=== PATIENT | female | born 1935 | race Caucasian/White ===

== ENCOUNTER 2016-05-08 19:12 | Inpatient (IN) | payer MEDICARE, OTHER ==
[~2016-05-08] VITALS: Ht 157.5 cm; Wt 96.2 kg
[~2016-05-08 19:12] MED LIST: ACET325T9 PO; ALBU2.5V5 NEB; AMLO5TAB2 PO; ARFO15VI NEB; ARIP5TAB6 PO; ASPI325T4 PO; BISA10SU2 RC; BISA5TAB4 PO; BRIM5DRO EACHEYE; BUDE0.5A NEB; BUSP5TAB PO; CHOL10003 PO; DEXT15DR5 EACHEYE; DIVA500T4 PO; FAMO20TA5 PO; ISOS30TA4 PO; LEVO50TA5 PO; MAGN400O4 PO; METH29OI TP; OMEG1CAP38 PO; POLY15DR27 OP; POLY17PO5 PO; PREG50CA PO; RANI150C PO; SERT100T PO; TROL86CR TP
--- NOTE | 2016-05-08 19:37 | ED.ADGEN ---
Adult General HPI HPI Patient is a 80-year-old female presents emergency department for medical clearance prior to admission to the geriatric psychiatric unit. Patient herself has no medical complaints. She does have a history of unspecified mood disorders. Review of Systems Review of Systems Constitutional: Denies fever or chills [] Eyes: Denies change in visual acuity, redness, or eye pain [] HENT: Denies nasal congestion or sore throat [] Respiratory: Denies cough or shortness of breath [] Cardiovascular: No additional information not addressed in HPI [] GI: Denies abdominal pain, nausea, vomiting, bloody stools or diarrhea [] : Denies dysuria or hematuria [] Musculoskeletal: Denies back pain or joint pain [] Integument: Denies rash or skin lesions [] Neurologic: Denies headache, focal weakness or sensory changes [] Endocrine: Denies polyuria or polydipsia [] Allergies Allergies Allergies Coded Allergies Type Severity Reaction Last Updated Verified Sulfa (Sulfonamide Antibiotics) Allergy Intermediate 01/20/16 Yes morphine Allergy Intermediate 01/20/16 Yes Physical Exam Physical Exam Constitutional: Well developed, well nourished, no acute distress, non-toxic appearance. [] HENT: Normocephalic, atraumatic, bilateral external ears normal, oropharynx moist, no oral exudates, nose normal. [] Eyes: PERRLA, EOMI, conjunctiva normal, no discharge. [] Neck: Normal range of motion, no tenderness, supple, no stridor. [] Cardiovascular:Heart rate regular rhythm, no murmur [] Lungs & Thorax: Bilateral breath sounds clear to auscultation [] Abdomen: Bowel sounds normal, soft, no tenderness, no masses, no pulsatile masses. [] Skin: Warm, dry, no erythema, no rash. [] Extremities: No tenderness, no cyanosis, no clubbing, ROM intact, no edema. [] Neurologic: Alert and oriented X 2, normal motor function, normal sensory function, no focal deficits noted. [] Psychologic: Affect normal, judgement normal, mood normal. [] Current Patient Data Lab Results Laboratory Tests Test 05/08/16 19:35 05/08/16 19:47 05/08/16 19:49 White Blood Count 4.8x10^3/uL (4.0-11.0) Red Blood Count 3.66x10^6/uL (3.50-5.40) Hemoglobin 10.7g/dL (12.0-15.5) L Hematocrit 32.8% (36.0-47.0) L Mean Corpuscular Volume 90fL (79-100) Mean Corpuscular Hemoglobin 29pg (25-35) Mean Corpuscular Hemoglobin Concent 33g/dL (31-37) Red Cell Distribution Width 14.6% (11.5-14.5) H Platelet Count 107x10^3/uL (140-400) L Neutrophils (%) (Auto) 64% (31-73) Lymphocytes (%) (Auto) 25% (24-48) Monocytes (%) (Auto) 10% (0-9) H Eosinophils (%) (Auto) 1% (0-3) Basophils (%) (Auto) 1% (0-3) Neutrophils # (Auto) 3.1x10^3uL (1.8-7.7) Lymphocytes # (Auto) 1.2x10^3/uL (1.0-4.8) Monocytes # (Auto) 0.5x10^3/uL (0.0-1.1) Eosinophils # (Auto) 0.0x10^3/uL (0.0-0.7) Basophils # (Auto) 0.0x10^3/uL (0.0-0.2) Magnesium Level 2.0mg/dL (1.8-2.4) Valproic Acid Level 28mcg/mL (50-100) L Valproic Acid Last Dose Date Unknown Valproic Acid Last Dose Time Unknown POC Hemoglobin 11.2gm/dL POC Hematocrit 33% POC Sodium 140mmol/L (135-145) POC Potassium 4.2mmol/L (3.5-5.0) POC Chloride 110mmol/L (98-110) POC Total CO2 24mmol/L (23-32) Anion Gap 11mmol/L (6-14) POC Blood Urea Nitrogen 31mg/dL (8-26) H POC Creatinine 1.5mg/dL (0.5-1.4) H Glucose Level 158mg/dL (60-99) H POC Ionized Calcium (Stanley) 1.32mmol/L (1.13-1.32) POC Troponin I 0.00ng/ml (<0.08) EKG EKG EKG interpreted by me, normal sinus rhythm, 57 beats for minute, leftward axis, no ST segment elevation. [] Radiology/Procedures Radiology/Procedures [] Course & Med Decision Making Course & Med Decision Making Pertinent Labs and Imaging studies reviewed. (See chart for details) Reassuring workup here. Patient admitted. [] Final Impression Final Impression Mood disorder with behavioral disturbance[] Problems: Dragon Disclaimer Dragon Disclaimer This electronic medical record was generated, in whole or in part, using a voice recognition dictation system. LETICIA REILYL MD May 08, 2016 19:37
[2016-05-08 19:58] LABS: BASO % 1 % (0-3); EOS % 1 % (0-3); HEMATOCRIT 32.8 % (36.0-47.0); HEMOGLOBIN 10.7 g/dL (12.0-15.5); LYMPH # 1.2 x10^3/uL (1.0-4.8); LYMPH % 25 % (24-48); MEAN CORPUSCULAR HEMOGLOBIN 29 pg (25-35); MEAN CORPUSCULAR HGB CONC 33 g/dL (31-37); MEAN CORPUSCULAR VOLUME 90 fL (79-100); MONO # 0.5 x10^3/uL (0.0-1.1); MONO % 10 % (0-9); NEUT # 3.1 x10^3uL (1.8-7.7); NEUT % 64 % (31-73); PLATELET COUNT 107 x10^3/uL (140-400); RED BLOOD COUNT 3.66 x10^6/uL (3.50-5.40); RED CELL DISTRIBUTION WIDTH 14.6 % (11.5-14.5); WHITE BLOOD COUNT 4.8 x10^3/uL (4.0-11.0)
[2016-05-08 20:03] LABS: HEMOGLOBIN ISTAT 11.2 gm/dL; POTASSIUM ISTAT 4.2 mmol/L (3.5-5.0)
--- NOTE | 2016-05-08 20:08 | EKG ---
[address] [address] Test Date: 2016-05-08 Test Time: 19:46:51 Pat Name: ABDON BOUDREAUX Department: Room: Gender: F Director Of Curriculum: : 1935 Requested By: LETICIA REILLY Order Number: [id number] Reading MD: Measurements Intervals [place] Rate: 57 P: 0 PA: 168 QRS: -24 QRSD: 88 T: -5 QT: 410 QTc: 402 Interpretive Statements SINUS RHYTHM LEFTWARD AXIS NO SPECIFIC ECG ABNORMALITIES RI6.01 Unconfirmed report Compared to ECG 05/19/2015 19:59:54 Left-axis deviation now present Sinus tachycardia no longer present T-wave abnormality no longer present Possible ischemia no longer present
[2016-05-08 20:10] LABS: VAL ACID 28 mcg/mL (50-100)
[2016-05-08 21:29] LABS: BILIRUBIN,URINE NEG (NEG); CLARITY,URINE CLEAR; COLOR,URINE YELLOW; GLUCOSE,URINE NEG (NEG); NITRITE,URINE NEG (NEG); UROBILINOGEN,URINE 0.2 mg/dL (0.2 mg/dL)
--- NOTE | 2016-05-08 21:30 | NUR ---
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 Molina. Dr. Kelly Dover consulted for medical management. Pt A/O x4 @this time, no hallucinations or delusions noted at this time. Pt ambulates w/assist x1-2, but is up per w/c at facility. Pt wears pull up briefs for occasional incontinence. LS clear to auscultation; abdomen soft, non-tender with positive bowel sounds; HRRR; BLE 2+ edema noted. Pt calm, cooperative, & compliant w/assessment; hx obtained from pt and daughter/DPOA. Pt denies SI/HI @this time.
[2016-05-08 21:31] LABS: BACTERIA,URINE 0 /HPF (0-FEW); RBC,URINE OCC /HPF (0-2); SQUAMOUS EPITHELIAL CELL,UR MANY /LPF
[2016-05-08] MEDS ORDERED: NITR0.4T SL (22:09)
[2016-05-08] MEDS ORDERED: MAGN400O4 PO (22:09)
[2016-05-08] MEDS ORDERED: CEFU250T59 PO (22:09)
[2016-05-08] MEDS ORDERED: IPRA3AMP NEB (22:09)
[2016-05-08] MEDS ORDERED: PROP1DRO OU (22:09)
[2016-05-08] MEDS ORDERED: MAGNESIUM HYDROXIDE 2,400 MG/30 ML ORAL.SUSP. PO PRN (22:30)
[2016-05-08] MEDS ORDERED: METHYL SALICYLATE/MENTHOL TOPICAL OINTMENT 29GM TUBE. TP PRN (22:30)
[2016-05-08] MEDS ORDERED: MAG HYDROX/AL HYDROX/SIMETH 30 ML ORAL.SUSP PO PRN (22:30)
[2016-05-08] MEDS ORDERED: ACETAMINOPHEN 325 MG TABLET PO PRN (22:30)
[2016-05-08] MEDS: busPIRone 5 MG TABLET. PO SCH (22:42)
[2016-05-08] MEDS: DIVALPROEX ER 500 MG TAB.ER.24H PO SCH (22:43)
[2016-05-08 23:14] VITALS: BP 175/80
--- NOTE | 2016-05-09 00:43 | NUR ---
Behavior Intervention Response and Plan: BIRP Note: Behavior: Assumed Care of patient, patient located in Patient Room at shift change. Patient exhibited the following behavior Calm, Cooperative, Compliant. Brief assessment on rounds of vital signs, medication needs, lab studies, and pain. Treatment plan problems 1 and 2. Intervention: Patient assessed and the following interventions initiated safety checks 15 Minute Checks Cognitive Assessment , Head to toe Assessment , Medications. Response: After interactions and interventions patient responded in the following manner, Calm , Compliant ,Cooperative. Continue to assess behaviors and condition will continue to monitor throughout the shift as needed. 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 Continue to assess patient for changes in above assessment. Monitor for medication needs, pain, and safety concerns. Hourly rounding performed to ensure safe environment.
[2016-05-09] MEDS ORDERED: BUDESONIDE 0.5 MG/2 ML NEBU NEB PRN (06:00)
[2016-05-09] MEDS ORDERED: ACETAMINOPHEN 325 MG TABLET PO PRN (06:00)
[2016-05-09] MEDS ORDERED: TROLAMINE SALICYLATE 10% TOPICAL CREAM 85GM JAR. TP PRN (06:00)
[2016-05-09] MEDS ORDERED: BISACODYL TAB 5 MG TABLET.DR. PO PRN (06:00)
[2016-05-09 06:07] VITALS: BP 153/58
[2016-05-09] MEDS: LEVOTHYROXINE 25 MCG TABLET. PO SCH (06:34)
[2016-05-09] MEDS: ASPIRIN 325 MG TABLET PO SCH (08:11)
[2016-05-09] MEDS: PREGABALIN 50 MG CAPSULE PO SCH ×3 (08:12→19:26)
[2016-05-09] MEDS: busPIRone 5 MG TABLET. PO SCH ×2 (08:12→19:20)
[2016-05-09] MEDS: ARIPIPRAZOLE 5 MG TABLET PO SCH (08:12)
[2016-05-09] MEDS: ACETAMINOPHEN 325 MG TABLET PO SCH ×2 (08:12→19:20)
[2016-05-09] MEDS: OMEGA-3 FATTY ACIDS/FISH OIL 1,000 MG CAPSULE. PO SCH (08:12)
[2016-05-09] MEDS: SERTRALINE 100 MG TABLET. PO SCH (08:12)
[2016-05-09] MEDS: FAMOTIDINE 20 MG TABLET PO SCH (08:13)
[2016-05-09] MEDS: ISOSORBIDE MONONITRATE ER 30 MG TAB.ER.24H PO SCH (08:13)
[2016-05-09] MEDS: AMLODIPINE BESYLATE 5 MG TABLET PO SCH ×2 (08:13→19:20)
[2016-05-09] MEDS: CHOLECALCIFEROL (VITAMIN D3) 1,000 UNIT TABLET PO SCH (08:13)
[2016-05-09] MEDS: BRIMONIDINE 0.2% OPHTH SOLUTION 5ML BOTTLE. OU SCH ×2 (08:18→21:00)
[2016-05-09] MEDS: POLYVINYL ALCOHOL 1.4% OPHTH SOLUTION 15ML BOTTLE. OU SCH ×2 (08:18→21:00)
[2016-05-09] MEDS: CEFPODOXIME PROXETIL 100 MG TABLET PO SCH ×2 (08:31→19:19)
[2016-05-09] MEDS ORDERED: PEG OU SCH (09:00)
[2016-05-09] MEDS ORDERED: PROPYLENE GLYCOL OU SCH (09:00)
[2016-05-09] MEDS ORDERED: CEFPODOXIME PROXETIL 200 MG TABLET PO SCH (09:00)
[2016-05-09] MEDS: IPRATRPIUM/ALBUTEROL 0.5/2.5MG 3 ML NEBU. NEB SCH ×4 (10:00→21:30)
--- NOTE | 2016-05-09 10:26 | RAD ---
CT of the head without contrast, 05/09/2016: History: Mental status change There is moderate cerebral atrophy. The ventricles are mildly enlarged on a compensatory basis. There is no shift of the midline structures. There is no evidence of acute intracranial hemorrhage or mass effect. There are mild bilateral deep white matter lucencies compatible with chronic ischemic change. Minimal basal ganglia calcification is present. IMPRESSION: 1. Cerebral atrophy. 2. Mild bilateral deep white matter lucencies compatible with chronic ischemic change. 3. No acute intracranial abnormality is detected. PQRS Compliance Statement: One or more of the following individualized dose reduction techniques were utilized for this examination: 1. Automated exposure control 2. Adjustment of the mA and/or kV according to patient size 3. Use of iterative reconstruction technique
--- NOTE | 2016-05-09 10:27 | NUR ---
Behavior Intervention Response and Plan: BIRP Note: Behavior: Assumed Care of patient, patient located in Patient Room at shift change. Patient exhibited the following behavior Calm, Compliant, Appropriate. Brief assessment on rounds of vital signs, medication needs, lab studies, and pain. Treatment plan problems 1 and 2. Intervention: Patient assessed and the following interventions initiated safety checks 15 Minute Checks Cognitive Assessment , Head to toe Assessment , Medications. Response: After interactions and interventions patient responded in the following manner, Calm , Appropriate ,Compliant. Continue to assess behaviors and condition will continue to monitor throughout the shift as needed. 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 Continue to assess patient for changes in above assessment. Monitor for medication needs, pain, and safety concerns. Hourly rounding performed to ensure safe environment.
--- NOTE | 2016-05-09 10:51 | ACF ---
Admission Criteria Forms [facility] Clinical Indications for Admission to Inpatient Care (Place 'X' for any and all applicable criteria): Hospital admission is needed for appropriate care of the patient because of ANY ONE of the following[A] (3)(4)(5): [ ]I. Inpatient behavioral care is needed as indicated by ALL of the following: [ ]a) Treatment is needed because of patient risk due to ANY ONE of the following: [ ]i) Imminent danger to self due to ANY ONE of the following ( 7)(8): [ ]1) Imminent risk for recurrence of a suicide attempt or act of serious self-harm as indicated by ALL of the following: [ ]A. Very recent suicide attempt or deliberate act of serious self-harm [ ]B. Absence of sufficient relief of the action' s precipitants [ ]2) Current plan for suicide or serious self-harm [ ]3) Persistent thoughts of suicide or serious self- harm that cannot be adequately monitored at a lower level of care because of ANY ONE of the following: [ ]A. Insufficient behavioral care provider availability [ ]B. Inadequate patient support system [ ]C. Patient characteristics such as high impulsivity or unreliability [ ]D. Ruminative flooding; uncontrollable and overwhelming profusion of negative thoughts [ ]E. Frantic hopelessness; fatalistic conviction that life will not improve along with oppressive sense of entrapment and doom [ ]F. Active substance use disorder is present [ ]G. Ready access to lethal means is present [ ]ii) Imminent danger to others due to ANY ONE of the following( 10)(11): [ ]1) Imminent risk for recurrence of an attempt to seriously harm another as indicated by ALL of the following: [ ]A. Very recent attempt to seriously harm another [ ]B. Absence of sufficient relief of the action' s precipitants [ ]2) Current plan for homicide or seriously harming another [ ]3) Command auditory hallucination for serious self harm to self or others [ ]4) Persistent thoughts of homicide or seriously harming another that cannot be adequately monitored at a lower level of care because of ANY ONE of the following: [ ]A. Insufficient behavioral care provider availability [ ]B. Inadequate patient support system [ ]C. Patient characteristics such as high impulsivity or unreliability [ ]D. Active substance use disorder is present [ ]E. Ready access to lethal means is present [ ]iii) Behavioral health disorder is present with ALL of the following: (12)(16)(17)(18): [ ]1) Severe psychiatric or behavioral symptoms are present , including ANY ONE of the following: [ ]A. Hallucinations that are very bothersome to patient or are associated with severe pressure to respond to voices(17)(18) [ ]B. Delusions that are very bothersome to patient or are associated with severe pressure to act on beliefs(17)(18) [ ]C. Disorganized speech that is almost impossible to follow(17)(18) [ ]D. Motor behavior that is almost constantly abnormal or bizarre or catatonic(17)(18) [ ]E. Severe negative symptoms (eg, severe decrease in facial expression or self-initiated behavior)(17)(18) [ ]F. Severe claudia (eg, daily periods of extensive mood elevation or irritability)(19)(20)(21)(22) [ ]G. Severe depression (eg, daily symptoms of deep hopelessness)[C] [ ]H. Severe anxiety[D] [ ]I. Severe comorbid substance use disorder with inability to control use, intense withdrawal symptoms, or extreme negative impact on primary psychiatric disorder(2)(7)(25) [ ]J. Severe impairment in cognition, memory, judgment, or impulse control(26)(27) [ ]K. Severe impairment in behavior, including physical or verbal aggression, disruptive behaviors, or internal or external anger manifestations (eg, rumination or outbursts)(28) [ ]L. Other psychiatric symptoms which are acute or represent worsening over baseline (eg, hyperactivity, agitation, obsessions, or compulsions)(29)(30)(31) [ ]2) Severe dysfunction in daily living is present as indicated by ANY ONE of the following: [ ]A. Extreme deterioration in social interactions ( eg, threatening behaviors with little or no provocation) [ ]B. Complete withdrawal from all social interactions [ ]C. Complete neglect of self-care with associated impairment in physical status [ ]D. Extreme disruption in vegetative function (eg , life-sustaining functions such as eating) [ ]E. Complete inability to maintain any appropriate aspect of personal responsibility in any adult roles (eg, occupational, parental) [ ]b) Treatment situation and needs are appropriate for level as indicated by ANY ONE of the following(13)(16): [ ]i) Patient unwilling to participate voluntarily and requires treatment (eg, legal commitment) in an involuntary unit [ ]ii) Voluntary treatment at lower level not feasible (e.g., very short-term crisis intervention or residential care unavailable or unacceptable for patient condition) [ ]iii) Need for physical restraint, seclusion, or other involuntary control (e.g., actively violent patient and adequate clinical rapport cannot be established to control violence) (25) [ ]iv) Nansyr-uek-kertm medical or nursing care to address symptoms and initiate intervention is required; specific need has been identified [ ]II. Delirium as described by ANY ONE of the following (26)(27)(28): [ ]a) Delirium due to alcohol or sedative [B] withdrawal (16)(29)(30)( 31) [ ]b) Delirium of uncertain etiology that has not responded to appropriate treatment in emergency department or urgent care setting (32)(33) [ ]c) Delirium that prevents performance of a life-sustaining function (eg, feeding or hydrating oneself) (9) [ ]III. Administration of a somatic treatment that requires [id number] medical or nursing care because of a potential adverse physical effect or medical comorbidity(7) [X]IV. Behavioral Health condition, symptom, or finding for which emergency and observation care have failed or are not considered appropriate The original [facility] content created by [employer] has been revised. The portions of the content which have been revised are identified through the use of italic text or in bold, and [facility] has neither reviewed nor approved the modified material. All other unmodified content is copyright [facility]. Please see references footnoted in the original [facility] edition 2016 Admission Criteria Met?: Yes LINK RENDON May 09, 2016 10:51
--- NOTE | 2016-05-09 12:47 | NUR ---
Psychosocial Assessment completed w/previous admission information. Pt. born in [place]. No history of family Dementia or MHI known, alcohol, substance abuse. Pt. graduated HS and was 3 times. Pt. has 2 dtrs. Pt. is a retired [employer]. Pt. has resided at [facility], although new placement may be necessary.
--- NOTE | 2016-05-09 12:49 | NUR ---
SW inquired w/[facility] if Pt. has had a Level II completed. Waiting for results.
[2016-05-09 13:52] LABS: IRON,SERUM 40 ug/dL (50-170)
--- NOTE | 2016-05-09 14:30 | NUR ---
ACTIVITY THERAPY ASSESSMENT Completed based on observations and interview on this day at this time in day room. Pt. was agreeable throughout assessment. Pt. could not believe she did what she supposedly did to get her here. Pt. reported she talked about killing Margarito but she stressed she would never do that. She repeated that statement over and over. Pt. reported she only likes three things: TV, Rummy and Bowling. Initial goal: Pt. will participate in at least one group before discharge.
[2016-05-09 14:54] LABS: THYROID STIM HORMONE (TSH) 0.293 uIU/mL (0.358-3.740)
[2016-05-09] MEDS ORDERED: CYANOCOBALAMIN (VITAMIN B-12) 1,000 MCG/ML VIAL IM ONE (15:10)
--- NOTE | 2016-05-09 15:22 | HP ---
ADMIT DATE: 05/09/2016 REASON FOR ADMISSION TO THE SENIOR BEHAVIORAL UNIT: This is an 80-year-old female, who has previous admission to the Senior Behavioral Unit in 01/2016. The intake states that she has been crying hysterically, going through her items, taking things apart and talking about dying and talking about her mother and father. The patient herself tells me that she knows her parents are and they a long time ago and what she said was that it was probably time for her to since she has lived so much longer than they have. The patient has no suicidal ideation or plan. PAST MEDICAL HISTORY: Recently being treated for urinary tract infection, peripheral vascular disease, COPD, hypothyroidism, chronic kidney disease stage 3, dependent edema, major depressive disorder, sleep apnea, but does not wear CPAP, fall risk, constipation, COPD. ALLERGIES: MORPHINE AND SULFA ANTIBIOTICS. MEDICATIONS: Reviewed. All of her medications are listed on 05/03/2016, so the patient has recently been hospitalized they were reviewed and are available on the MAR. SOCIAL HISTORY: The patient resides at [facility]. She has a daughter that she talks about. She grew up in [place], [place]. She was very close to her mother and father. She did smoke for 20 years from 1953 to 1972 and when her mother she quit. 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 REVIEW OF SYSTEMS: The patient has no particular complaints and nothing is bothering her and she is not sure why she is here. OBJECTIVE: VITAL SIGNS: Blood pressure 153/58, pulse 61, respirations 20, temperature 97.7, pulse ox this morning was 92% on room air and later was 98% on room air. GENERAL: Seated in a wheelchair, reading a magazine, mood is very amicable. She has an excellent sense of humour. HEENT: Her TMs were intact with good , actually the right side was partially occluded by wax. Her pupils are equal, round, react to light. Extraocular muscles are intact. She has evidence of cataract surgery. Her nose was patent. Throat was clear. Gag was excellent. NECK: Supple, without adenopathy. LUNGS: Clear to auscultation. CARDIOVASCULAR: Regular rhythm and rate. ABDOMEN: Soft, nontender. EXTREMITIES: With 1+ edema. NEUROLOGIC: She is intact. She can follow directions. Her cranial nerves are intact. There are no gross tremors. LABORATORY DATA: Hemoglobin is 10.7, platelet count was 107, BUN 31, creatinine 1.5. Iron is 40. B12 of 386. . ASSESSMENT: 1. Cognitive impairment with behavior disturbance. 2. Thoughts of dying. 3. Chronic kidney disease stage 3. 4. Normochromic normocytic anemia. 5. Mild thrombocytopenia. 6. Mild iron deficiency. 7. Sleep apnea, does not use CPAP. 8. Gastroesophageal reflux disease. PLAN: Treat her medical conditions, follow along with Dr. Molina, monitor blood work PT/OT. MADY HOWELL DO DR: OTIS/bryant JOB#: [id number] / [id number]
[2016-05-09 16:22] VITALS: BP 164/71
--- NOTE | 2016-05-09 16:52 | NUR ---
SW reviewed PT. insurance upon admit. CSNAP states No Part C, Intake states Medicaid, and Face sheet states PT's insurance is Medicare A/B primary and [place] secondary. No auth necessary.
[2016-05-09 17:10] LABS: T3 TOTAL 90 ng/dL (71-180)
[2016-05-09] MEDS: PRENATAL MULTIVITAMIN TABLET. PO SCH (17:14)
[2016-05-09] MEDS: DIVALPROEX ER 500 MG TAB.ER.24H PO SCH (19:20)
--- NOTE | 2016-05-09 21:18 | PDOC ---
Exam Chester Demential Exam: [place] Note: Please also refer to the separate dictated note~for this date of service dictated separately.~Patient seen individually. Discussed the patient with Nursing staff reviewed the chart.~Reviewed interim history and current functioning. Reviewed vital signs,~Labs/ Radiology~and current medications noted below. Continue current treatment with the changes noted in the dictated addendum note Assessment: Vital Signs: Vital Signs Date Time Temp Pulse Resp B/P Pulse Ox O2 Delivery O2 Flow Rate FiO2 05/09/16 19:20 62 164/71 05/09/16 16:22 97.3 18 95 05/09/16 10:00 Room Air Current Medications: Meds: Current Medications Aripiprazole (Abilify) 5 mg DAILY PO Last administered on 05/09/16 08:12; Start 05/09/16 at 09:00 Divalproex Sodium (Depakote Er) 500 mg HS PO Last administered on 05/09/16 19: 20; Start 05/08/16 at 22:00 Sertraline HCl (Zoloft) 200 mg DAILY PO Last administered on 05/09/16 08:12; Start 05/09/16 at 09:00 Buspirone HCl (Buspar) 5 mg BID PO Last administered on 05/09/16 19:20; Start 05/08/16 at 22:00 Acetaminophen (Tylenol) 650 mg PRN Q6HRS PRN PO PAIN / TEMP; Start 05/08/16 at 22:30; Stop 05/09/16 at 05:59; Status DC Multi-Ingredient Ointment (Analgesic [place]) 1 tang PRN QID PRN TP MUSCLE PAIN; Start 05/08/16 at 22:30 Al Hydroxide/Mg Hydroxide (Mylanta Plus Xs) 15 ml PRN AFTMEALHC PRN PO DYSPEPSIA; Start 05/08/16 at 22:30 Magnesium Hydroxide (Milk Of Magnesia) 2,400 mg PRN QHS PRN PO CONSTIPATION; Start 05/08/16 at 22:30; Stop 05/09/16 at 05:59; Status DC Acetaminophen (Tylenol) 650 mg BID PO Last administered on 05/09/16 19:20; Start 05/09/16 at 09:00 Acetaminophen (Tylenol) 650 mg PRN Q6HRS PRN PO MILD PAIN / TEMP; Start at 06:00 Amlodipine Besylate (Norvasc) 5 mg BID PO Last administered on 05/09/16 19:20 ; Start 05/09/16 at 09:00 Aspirin (Bronson Aspirin) 325 mg DAILY08 PO Last administered on 05/09/16 08:11 ; Start 05/09/16 at 08:00 Bisacodyl (Dulcolax Tab) 10 mg PRN DAILY PRN PO CONSTIPATION; Start 05/09/16 at 06:00 Budesonide (Pulmicort) 0.5 mg PRN BID PRN NEB wheezing; Start 05/09/16 at 06:00 Vitamin D (Vitamin D3) 5,000 unit DAILY PO Last administered on 05/09/16 08:13 ; Start 05/09/16 at 09:00 Famotidine (Pepcid) 20 mg DAILY PO Last administered on 05/09/16 08:13; Start 05/09/16 at 09:00 Albuterol/ Ipratropium (Duoneb) 3 ml RTQID NEB Last administered on 05/09/16 10:00; Start 05/09/16 at 08:00 Isosorbide Mononitrate (Imdur) 30 mg DAILY PO Last administered on 05/09/16 08 :13; Start 05/09/16 at 09:00 Levothyroxine Sodium (Synthroid) 25 mcg DAILY07 PO Last administered on 06:34; Start 05/09/16 at 07:00 Magnesium Hydroxide (Milk Of Magnesia) 2,400 mg PRN DAILY PRN PO CONSTIPATION; Start 05/09/16 at 06:00 Artificial Tears (Artificial Tears) 1 drop BID OU Last administered on 08:18; Start 05/09/16 at 09:00 Pregabalin (Lyrica) 50 mg TID PO Last administered on 05/09/16 19:26; Start at 09:00 Trolamine Salicylate (Myoplex) 1 tang PRN QID PRN TP MUSCLE PAIN; Start at 06:00 Brimonidine Tartrate (Alphagan) 1 drop BID OU Last administered on 05/09/16 08 :18; Start 05/09/16 at 09:00 Cefpodoxime Proxetil (Vantin) 200 mg BID PO ; Start 05/09/16 at 09:00; Stop at 09:00; Status DC Fish Oil (Fish Oil) 1,000 mg DAILY PO Last administered on 05/09/16 08:12; Start 05/09/16 at 09:00 Non-Formulary Medication 1 drop BID OU Glaucoma; Start 05/09/16 at 09:00; Status UNV Cefpodoxime Proxetil (Vantin) 200 mg BID PO Last administered on 05/09/16 19: 19; Start 05/09/16 at 09:00 Cyanocobalamin (Vitamin B-12) 1,000 mcg 1X ONCE IM Last administered on 17:14; Start 05/09/16 at 15:10; Stop 05/09/16 at 15:11; Status DC Prenat Multivit/ [employer]/Iron/Folic Ac (Multivitamin ) 1 tab DAILYBFRSUP PO Last administered on 05/09/16 17:14; Start 05/09/16 at 17:00 Active Scripts Active Reported Nitrostat (Nitroglycerin) 0.4 Mg Tab.subl 0.4 Mg SL PRN Q3MIN PRN Milk Of Magnesia (Magnesium Hydroxide) 400 Mg/5 Ml Oral.susp 30 Ml PO PRN DAILY PRN Systane 0.3-0.4% Eye Drops (Propylene Glycol/Peg 400/Pf) 1 Each Droperette 1 Drop OU BID Duoneb 0.5-3(2.5) Mg/3 Ml (Albuterol/Ipratropium) 3 Ml Ampul.neb 3 Ml NEB QID Cefuroxime (Cefuroxime Axetil) 250 Mg Tablet 250 Mg PO BID 10 Days Buspirone Hcl 5 Mg Tablet 5 Mg PO BID Artificial Tears (Polyvinyl Alcohol) 15 Ml Drops 1 Drp OP BID Famotidine 20 Mg Tablet 1 Tab PO BID Analgesic Creme (Trolamine Salicylate) 86 Gm Cream..g. 1 Tang TP PRN QID PRN Bisacodyl 10 Mg Supp.rect 10 Mg RC PRN DAILY PRN FOR CONSTIPATION NOT RELIEVED BY MILK OF MAG/MIRALAX/BISACODYL ORAL Bisacodyl 5 Mg Tablet.dr 10 Mg PO PRN DAILY PRN FOR CONSTIPATION NOT RELIEVED BY MILK OF MAGNESIA OR MIRALAX Tylenol (Acetaminophen) 325 Mg Tablet 650 Mg PO PRN Q6HRS PRN Lyrica (Pregabalin) 50 Mg Capsule 50 Mg PO TID Abilify (Aripiprazole) 5 Mg Tablet 5 Mg PO DAILY Vitamin D3 (Cholecalciferol (Vitamin D3)) 1,000 Unit Tablet 5,000 Unit PO DAILY Tylenol (Acetaminophen) 325 Mg Tablet 650 Mg PO BID Zoloft (Sertraline Hcl) 100 Mg Tablet 200 Mg PO DAILY Levothyroxine Sodium 50 Mcg Tablet 25 Mcg PO DAILY06 Isosorbide Mononitrate Er (Isosorbide Mononitrate) 30 Mg Tab.er.24h 30 Mg PO DAILY [place] 3 Fish Oil Softgel ([place]-3 Fatty Acids/Fish Oil) 1 Each Capsule.dr 1,000 Mg PO DAILY Depakote Er (Divalproex Sodium) 500 Mg Tab.er.24h 500 Mg PO HS Budesonide 0.5 Mg/2 Ml Ampul.neb 1 Vial NEB PRN BID PRN Alphagan P (Brimonidine Tartrate) 5 Ml Drops 1 Drop EACHEYE BID Aspirin 325 Mg Tablet 325 Mg PO DAILY08 Amlodipine Besylate 5 Mg Tablet 5 Mg PO BID Diagnosis: Problems: (1) Depression (2) Bipolar affective, mixed, sev w/ psych (3) Anxiety disorder (4) Impulse control disorder (5) Major depressive disorder, recurrent episode FAUSTO GREGORY MD May 09, 2016 21:18
--- NOTE | 2016-05-09 21:52 | NUR ---
Behavior Intervention Response and Plan: BIRP Note: Behavior: Assumed Care of patient, patient located in Day Room at shift change. Patient exhibited the following behavior Interactive, Calm, Able to Focus on Task. Brief assessment on rounds of vital signs, medication needs, lab studies, and pain. Treatment plan problems aggrssion. Intervention: Patient assessed and the following interventions initiated safety checks 15 Minute Checks Cognitive Assessment , Head to toe Assessment , Medications. Response: After interactions and interventions patient responded in the following manner, Social , Restless ,Defensive. Continue to assess behaviors and condition will continue to monitor throughout the shift as needed. 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 Continue to assess patient for changes in above assessment. Monitor for medication needs, pain, and safety concerns. Hourly rounding performed to ensure safe environment.
[2016-05-10 01:11] LABS: HEMOGLOBIN A1C 5.6 % (4.8-5.6)
[2016-05-10 03:12] LABS: RPR REFLEX Non Reactive (Non Reactive)
[2016-05-10] MEDS: IPRATRPIUM/ALBUTEROL 0.5/2.5MG 3 ML NEBU. NEB SCH ×4 (05:25→21:34)
--- NOTE | 2016-05-10 06:12 | NUR ---
pt slept well all shift.
[2016-05-10 06:25] VITALS: BP 162/69
[2016-05-10] MEDS: ACETAMINOPHEN 325 MG TABLET PO SCH ×2 (09:19→20:19)
[2016-05-10] MEDS: ARIPIPRAZOLE 5 MG TABLET PO SCH (09:19)
[2016-05-10] MEDS: CEFPODOXIME PROXETIL 100 MG TABLET PO SCH ×2 (09:19→20:13)
[2016-05-10] MEDS: AMLODIPINE BESYLATE 5 MG TABLET PO SCH ×2 (09:19→20:20)
[2016-05-10] MEDS: CHOLECALCIFEROL (VITAMIN D3) 1,000 UNIT TABLET PO SCH (09:19)
[2016-05-10] MEDS: ISOSORBIDE MONONITRATE ER 30 MG TAB.ER.24H PO SCH (09:20)
[2016-05-10] MEDS: FAMOTIDINE 20 MG TABLET PO SCH (09:20)
[2016-05-10] MEDS: SERTRALINE 100 MG TABLET. PO SCH (09:20)
[2016-05-10] MEDS: busPIRone 5 MG TABLET. PO SCH ×2 (09:20→20:19)
[2016-05-10] MEDS: ASPIRIN 325 MG TABLET PO SCH (09:20)
[2016-05-10] MEDS: OMEGA-3 FATTY ACIDS/FISH OIL 1,000 MG CAPSULE. PO SCH (09:20)
[2016-05-10] MEDS: BRIMONIDINE 0.2% OPHTH SOLUTION 5ML BOTTLE. OU SCH ×2 (09:22→20:20)
[2016-05-10] MEDS: PREGABALIN 50 MG CAPSULE PO SCH ×3 (09:22→20:21)
[2016-05-10] MEDS: POLYVINYL ALCOHOL 1.4% OPHTH SOLUTION 15ML BOTTLE. OU SCH ×2 (09:22→20:20)
[2016-05-10] MEDS: LEVOTHYROXINE 25 MCG TABLET. PO SCH (09:22)
[2016-05-10 10:06] LABS: ALBUMIN 3.1 g/dL (3.4-5.0); ALBUMIN/GLOBULIN RATIO 0.8 (1.0-1.7); CALCIUM 9.5 mg/dL (8.5-10.1); CREATININE 1.5 mg/dL (0.6-1.0); GFR 33.3; POTASSIUM 4.5 mmol/L (3.5-5.1); TOTAL BILIRUBIN 0.2 mg/dL (0.2-1.0); TOTAL PROTEIN 6.8 g/dL (6.4-8.2)
--- NOTE | 2016-05-10 11:35 | NUR ---
Behavior Intervention Response and Plan: BIRP Note: Behavior: Assumed Care of patient, patient located in Day Room at shift change. Patient exhibited the following behavior Calm, Cooperative, Interactive. Brief assessment on rounds of vital signs, medication needs, lab studies, and pain. Treatment plan problems 1 and 2. Intervention: Patient assessed and the following interventions initiated safety checks 15 Minute Checks Cognitive Assessment , Medications , Oral Hydration. Response: After interactions and interventions patient responded in the following manner, Interactive , Appropriate ,Cooperative. Continue to assess behaviors and condition will continue to monitor throughout the shift as needed. 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 Continue to assess patient for changes in above assessment. Monitor for medication needs, pain, and safety concerns. Hourly rounding performed to ensure safe environment.
--- NOTE | 2016-05-10 12:04 | NUR ---
SW faxed over Facesheet to [facility] requesting Level II assessment.
[2016-05-10 12:10] LABS: VITAMIN D25(OH)TOTAL 27.4 ng/mL (30.0-100.0)
--- NOTE | 2016-05-10 12:12 | HP ---
ADMIT DATE: 05/09/2016 Psychiatric Admission History/Evaluation This is a late entry. IDENTIFYING DATA: The patient is an 80-year-old female who is referred back to [facility] by her primary care physician on account of "crying hysterically," going through with things, taking things apart, talking about dying, looking for mother and father, stating "I'm going to ." The patient has had marked increase in her mood lability. Behaviors have been unmanageable at the nursing facility. She has failed outpatient psychiatric interventions resulting in this referral. CHIEF COMPLAINT: "Nice to seen you again. Yes, I get depressed. Things get difficult." HISTORY OF PRESENT ILLNESS: The patient has a history of mood disorder, unspecified versus bipolar 1 disorder. She also has anxiety disorder and cognitive disorder, cyclothymic disorder. She has been here with us in the past, for sometime has been residing at the [facility]. Over the past week or 10 days, she has had increase of her mood vacillation. She was also diagnosed with a UTI and has been on antibiotics since 05/03. She has had sleep and appetite changes, marked increase in anxiety and depressive symptoms. No active suicidal or homicidal ideation. She does have short term memory deficits. PAST PSYCHIATRIC HISTORY: As above. MEDICAL HISTORY: Peripheral vascular disease, obesity, COPD, hypothyroidism, chronic kidney disease, glaucoma, GERD, hypertension, atrial fibrillation, sleep apnea, diabetes mellitus, UTI. She has Accu-Cheks a.c. and at bedtime, regular diet, takes her medications whole. CODE STATUS: DNR. CURRENT PSYCHOTROPICS: Zoloft 200 mg a day, Abilify 5 mg a day, BuSpar 5 mg twice a day, Depakote ER 500 mg at bedtime. Valproic acid level is 28. FAMILY HISTORY: Noncontributory. SOCIAL HISTORY: No alcohol, drug abuse, physical, sexual or elder abuse history is noted. She is not known to be a perpetrator. MENTAL STATUS EXAMINATION: The patient was seen individually. She readily recognized me. Speech is coherent. Mood is depressed, anxious, labile at times. At times, she is somewhat hyperverbal. Intellect average. Insight fair. Judgment intact to standard questioning. No active suicidal or homicidal ideation. No clear hallucinations noted. LABORATORY DATA: Reviewed. PHYSICAL EXAMINATION: VITAL SIGNS: Mentioned in my initial note. IMPRESSION: Bipolar 1 disorder, mixed versus depressed with a history of psychotic features; anxiety disorder, unspecified; cyclothymic disorder, mood disorder, unspecified; cognitive disorder, unspecified. Rest diagnoses as above. PLAN: Continue current psychotropics mentioned about. Check a valproic acid level, adjust Depakote to reach a therapeutic level. May need to change Zoloft to Wellbutrin or augment Zoloft with Wellbutrin depending on her mood symptoms post-adjustment of Depakote. I will see the patient daily individually from a psychiatric standpoint. Medical followp with Dr. Dover/Dr. Elias. MAN Marcela GREGORY MD DR: LUBNA/bryant JOB#: [id number] / [id number]
[2016-05-10 16:14] VITALS: BP 115/56
[2016-05-10] MEDS: PRENATAL MULTIVITAMIN TABLET. PO SCH (17:03)
--- NOTE | 2016-05-10 20:20 | NUR ---
Behavior Intervention Response and Plan: BIRP Note: Behavior: Assumed Care of patient, patient located in Patient Room at shift change. Patient exhibited the following behavior Calm, Compliant, Cooperative. Brief assessment on rounds of vital signs, medication needs, lab studies, and pain. Treatment plan problems . Intervention: Patient assessed and the following interventions initiated safety checks 15 Minute Checks Cognitive Assessment , Head to toe Assessment , Medications. Response: After interactions and interventions patient responded in the following manner, Calm , Compliant ,Cooperative. Continue to assess behaviors and condition will continue to monitor throughout the shift as needed. 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 Continue to assess patient for changes in above assessment. Monitor for medication needs, pain, and safety concerns. Hourly rounding performed to ensure safe environment.
[2016-05-10] MEDS: DIVALPROEX ER 250 MG TAB.ER.24H. PO SCH (20:21)
--- NOTE | 2016-05-10 21:02 | PDOC ---
Exam Chester Demential Exam: Chester Note: Please also refer to the separate dictated note~for this date of service dictated separately.~Patient seen individually. Discussed the patient with Nursing staff reviewed the chart.~Reviewed interim history and current functioning. Reviewed vital signs,~Labs/ Radiology~and current medications noted below. Continue current treatment with the changes noted in the dictated addendum note Assessment: Vital Signs: Vital Signs Date Time Temp Pulse Resp B/P Pulse Ox O2 Delivery O2 Flow Rate FiO2 05/10/16 20:20 76 176/80 05/10/16 16:54 98 Room Air 05/10/16 16:14 97.6 18 I&O Intake and Output 05/10/16 07:00 Intake Total 1320 ml Balance 1320 ml Intake Oral 1320 ml Labs: Laboratory Tests Test 05/10/16 07:40 05/10/16 09:24 05/10/16 12:38 05/10/16 16:55 Glucose (Fingerstick) 111mg/dL (70-99) H 148mg/dL (70-99) H 146mg/dL (70-99) H Sodium Level 145mmol/L (136-145) Potassium Level 4.5mmol/L (3.5-5.1) Chloride Level 109mmol/L (98-107) H Carbon Dioxide Level 27mmol/L (21-32) Anion Gap 9 (6-14) Blood Urea Nitrogen 34mg/dL (7-20) H Creatinine 1.5mg/dL (0.6-1.0) H Estimated GFR (Cockcroft-Gault) 33.3 BUN/Creatinine Ratio 23 (6-20) H Glucose Level 141mg/dL (70-99) H Calcium Level 9.5mg/dL (8.5-10.1) Total Bilirubin 0.2mg/dL (0.2-1.0) Aspartate Amino Transferase (AST) 10U/L (15-37) L Alanine Aminotransferase (ALT) 16U/L (14-59) Alkaline Phosphatase 105U/L (46-116) Total Protein 6.8g/dL (6.4-8.2) Albumin 3.1g/dL (3.4-5.0) L Albumin/Globulin Ratio 0.8 (1.0-1.7) L Test 05/10/16 19:55 Glucose (Fingerstick) 181mg/dL (70-99) H Current Medications: Meds: Current Medications Aripiprazole (Abilify) 5 mg DAILY PO Last administered on 05/10/16 09:19; Start 05/09/16 at 09:00 Divalproex Sodium (Depakote Er) 500 mg HS PO Last administered on 05/09/16 19: 20; Start 05/08/16 at 22:00; Stop 05/10/16 at 10:35; Status DC Sertraline HCl (Zoloft) 200 mg DAILY PO Last administered on 05/10/16 09:20; Start 05/09/16 at 09:00 Buspirone HCl (Buspar) 5 mg BID PO Last administered on 05/10/16 20:19; Start 05/08/16 at 22:00 Acetaminophen (Tylenol) 650 mg PRN Q6HRS PRN PO PAIN / TEMP; Start 05/08/16 at 22:30; Stop 05/09/16 at 05:59; Status DC Multi-Ingredient Ointment (Analgesic [place]) 1 tang PRN QID PRN TP MUSCLE PAIN; Start 05/08/16 at 22:30 Al Hydroxide/Mg Hydroxide (Mylanta Plus Xs) 15 ml PRN AFTMEALHC PRN PO DYSPEPSIA; Start 05/08/16 at 22:30 Magnesium Hydroxide (Milk Of Magnesia) 2,400 mg PRN QHS PRN PO CONSTIPATION; Start 05/08/16 at 22:30; Stop 05/09/16 at 05:59; Status DC Acetaminophen (Tylenol) 650 mg BID PO Last administered on 05/10/16 20:19; Start 05/09/16 at 09:00 Acetaminophen (Tylenol) 650 mg PRN Q6HRS PRN PO MILD PAIN / TEMP; Start at 06:00 Amlodipine Besylate (Norvasc) 5 mg BID PO Last administered on 05/10/16 20:20 ; Start 05/09/16 at 09:00 Aspirin (Bronson Aspirin) 325 mg DAILY08 PO Last administered on 05/10/16 09:20 ; Start 05/09/16 at 08:00 Bisacodyl (Dulcolax Tab) 10 mg PRN DAILY PRN PO CONSTIPATION; Start 05/09/16 at 06:00 Budesonide (Pulmicort) 0.5 mg PRN BID PRN NEB wheezing; Start 05/09/16 at 06:00 Vitamin D (Vitamin D3) 5,000 unit DAILY PO Last administered on 05/10/16 09:19 ; Start 05/09/16 at 09:00 Famotidine (Pepcid) 20 mg DAILY PO Last administered on 05/10/16 09:20; Start 05/09/16 at 09:00 Albuterol/ Ipratropium (Duoneb) 3 ml RTQID NEB Last administered on 05/10/16 16:53; Start 05/09/16 at 08:00 Isosorbide Mononitrate (Imdur) 30 mg DAILY PO Last administered on 05/10/16 09 :20; Start 05/09/16 at 09:00 Levothyroxine Sodium (Synthroid) 25 mcg DAILY07 PO Last administered on 09:22; Start 05/09/16 at 07:00 Magnesium Hydroxide (Milk Of Magnesia) 2,400 mg PRN DAILY PRN PO CONSTIPATION; Start 05/09/16 at 06:00 Artificial Tears (Artificial Tears) 1 drop BID OU Last administered on 20:20; Start 05/09/16 at 09:00 Pregabalin (Lyrica) 50 mg TID PO Last administered on 05/10/16 20:21; Start at 09:00 Trolamine Salicylate (Myoplex) 1 tang PRN QID PRN TP MUSCLE PAIN; Start at 06:00 Brimonidine Tartrate (Alphagan) 1 drop BID OU Last administered on 05/10/16 20 :20; Start 05/09/16 at 09:00 Cefpodoxime Proxetil (Vantin) 200 mg BID PO ; Start 05/09/16 at 09:00; Stop at 09:00; Status DC Fish Oil (Fish Oil) 1,000 mg DAILY PO Last administered on 05/10/16 09:20; Start 05/09/16 at 09:00 Non-Formulary Medication 1 drop BID OU Glaucoma; Start 05/09/16 at 09:00; Status UNV Cefpodoxime Proxetil (Vantin) 200 mg BID PO Last administered on 05/10/16 20: 13; Start 05/09/16 at 09:00 Cyanocobalamin (Vitamin B-12) 1,000 mcg 1X ONCE IM Last administered on 17:14; Start 05/09/16 at 15:10; Stop 05/09/16 at 15:11; Status DC Prenat Multivit/ [place]/Iron/Folic Ac (Multivitamin ) 1 tab DAILYBFRSUP PO Last administered on 05/10/16 17:03; Start 05/09/16 at 17:00 Divalproex Sodium (Depakote Er) 750 mg QHS PO Last administered on 05/10/16 20 :21; Start 05/10/16 at 21:00 Active Scripts Active Reported Nitrostat (Nitroglycerin) 0.4 Mg Tab.subl 0.4 Mg SL PRN Q3MIN PRN Milk Of Magnesia (Magnesium Hydroxide) 400 Mg/5 Ml Oral.susp 30 Ml PO PRN DAILY PRN Systane 0.3-0.4% Eye Drops (Propylene Glycol/Peg 400/Pf) 1 Each Droperette 1 Drop OU BID Duoneb 0.5-3(2.5) Mg/3 Ml (Albuterol/Ipratropium) 3 Ml Ampul.neb 3 Ml NEB QID Cefuroxime (Cefuroxime Axetil) 250 Mg Tablet 250 Mg PO BID 10 Days Buspirone Hcl 5 Mg Tablet 5 Mg PO BID Artificial Tears (Polyvinyl Alcohol) 15 Ml Drops 1 Drp OP BID Famotidine 20 Mg Tablet 1 Tab PO BID Analgesic Creme (Trolamine Salicylate) 86 Gm Cream..g. 1 Tang TP PRN QID PRN Bisacodyl 10 Mg Supp.rect 10 Mg RC PRN DAILY PRN FOR CONSTIPATION NOT RELIEVED BY MILK OF MAG/MIRALAX/BISACODYL ORAL Bisacodyl 5 Mg Tablet.dr 10 Mg PO PRN DAILY PRN FOR CONSTIPATION NOT RELIEVED BY MILK OF MAGNESIA OR MIRALAX Tylenol (Acetaminophen) 325 Mg Tablet 650 Mg PO PRN Q6HRS PRN Lyrica (Pregabalin) 50 Mg Capsule 50 Mg PO TID Abilify (Aripiprazole) 5 Mg Tablet 5 Mg PO DAILY Vitamin D3 (Cholecalciferol (Vitamin D3)) 1,000 Unit Tablet 5,000 Unit PO DAILY Tylenol (Acetaminophen) 325 Mg Tablet 650 Mg PO BID Zoloft (Sertraline Hcl) 100 Mg Tablet 200 Mg PO DAILY Levothyroxine Sodium 50 Mcg Tablet 25 Mcg PO DAILY06 Isosorbide Mononitrate Er (Isosorbide Mononitrate) 30 Mg Tab.er.24h 30 Mg PO DAILY [place] 3 Fish Oil Softgel ([place] Fatty Acids/Fish Oil) 1 Each Capsule.dr 1,000 Mg PO DAILY Depakote Er (Divalproex Sodium) 500 Mg Tab.er.24h 500 Mg PO HS Budesonide 0.5 Mg/2 Ml Ampul.neb 1 Vial NEB PRN BID PRN Alphagan P (Brimonidine Tartrate) 5 Ml Drops 1 Drop EACHEYE BID Aspirin 325 Mg Tablet 325 Mg PO DAILY08 Amlodipine Besylate 5 Mg Tablet 5 Mg PO BID Diagnosis: Problems: (1) Depression (2) Bipolar affective, mixed, sev w/ psych (3) Anxiety disorder (4) Impulse control disorder (5) Major depressive disorder, recurrent episode FAUSTO GREGORY MD May 10, 2016 21:02
[2016-05-11] MEDS: IPRATRPIUM/ALBUTEROL 0.5/2.5MG 3 ML NEBU. NEB SCH ×4 (05:39→19:56)
[2016-05-11] MEDS: LEVOTHYROXINE 25 MCG TABLET. PO SCH (05:42)
[2016-05-11 06:34] VITALS: BP 173/67
[2016-05-11] MEDS: SERTRALINE 100 MG TABLET. PO SCH (08:50)
[2016-05-11] MEDS: CHOLECALCIFEROL (VITAMIN D3) 1,000 UNIT TABLET PO SCH (08:50)
[2016-05-11] MEDS: OMEGA-3 FATTY ACIDS/FISH OIL 1,000 MG CAPSULE. PO SCH (08:50)
[2016-05-11] MEDS: FAMOTIDINE 20 MG TABLET PO SCH (08:50)
[2016-05-11] MEDS: busPIRone 5 MG TABLET. PO SCH ×2 (08:50→19:38)
[2016-05-11] MEDS: ARIPIPRAZOLE 5 MG TABLET PO SCH (08:50)
[2016-05-11] MEDS: AMLODIPINE BESYLATE 5 MG TABLET PO SCH ×2 (08:50→19:39)
[2016-05-11] MEDS: ISOSORBIDE MONONITRATE ER 30 MG TAB.ER.24H PO SCH (08:51)
[2016-05-11] MEDS: ASPIRIN 325 MG TABLET PO SCH (08:51)
[2016-05-11] MEDS: ACETAMINOPHEN 325 MG TABLET PO SCH ×2 (08:51→19:39)
[2016-05-11] MEDS: CEFPODOXIME PROXETIL 100 MG TABLET PO SCH ×2 (08:51→19:40)
[2016-05-11] MEDS: POLYVINYL ALCOHOL 1.4% OPHTH SOLUTION 15ML BOTTLE. OU SCH ×2 (08:52→19:42)
[2016-05-11] MEDS: BRIMONIDINE 0.2% OPHTH SOLUTION 5ML BOTTLE. OU SCH ×2 (08:52→19:42)
[2016-05-11] MEDS: PREGABALIN 50 MG CAPSULE PO SCH ×3 (08:52→19:42)
--- NOTE | 2016-05-11 10:14 | NUR ---
Behavior Intervention Response and Plan: BIRP Note: Behavior: Assumed Care of patient, patient located in Patient Room at shift change. Patient exhibited the following behavior Calm, Cooperative, Compliant. Brief assessment on rounds of vital signs, medication needs, lab studies, and pain. Treatment plan problems . Intervention: Patient assessed and the following interventions initiated safety checks 15 Minute Checks Personal Alarm in place , Cognitive Assessment , Head to toe Assessment. Response: After interactions and interventions patient responded in the following manner, Calm , Cooperative ,Compliant. Continue to assess behaviors and condition will continue to monitor throughout the shift as needed. 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 Continue to assess patient for changes in above assessment. Monitor for medication needs, pain, and safety concerns. Hourly rounding performed to ensure safe environment.
[2016-05-11] MEDS: PRENATAL MULTIVITAMIN TABLET. PO SCH (14:45)
[2016-05-11 16:07] VITALS: BP 157/70
[2016-05-11] MEDS: DIVALPROEX ER 250 MG TAB.ER.24H. PO SCH (19:40)
--- NOTE | 2016-05-11 21:01 | PDOC ---
Exam [place] Demential Exam: [place] Note: Please also refer to the separate dictated note~for this date of service dictated separately.~Patient seen individually. Discussed the patient with Nursing staff reviewed the chart.~Reviewed interim history and current functioning. Reviewed vital signs,~Labs/ Radiology~and current medications noted below. Continue current treatment with the changes noted in the dictated addendum note Assessment: Vital Signs: Vital Signs Date Time Temp Pulse Resp B/P Pulse Ox O2 Delivery O2 Flow Rate FiO2 05/11/16 19:58 99 Room Air 05/11/16 19:39 57 157/70 05/11/16 16:07 97.5 20 I&O Intake and Output 05/11/16 07:00 Intake Total 1300 ml Balance 1300 ml Intake Oral 1300 ml # Voids 2 Labs: Laboratory Tests Test 05/11/16 07:36 05/11/16 11:03 Glucose (Fingerstick) 105mg/dL (70-99) H 121mg/dL (70-99) H Current Medications: Meds: Current Medications Aripiprazole (Abilify) 5 mg DAILY PO Last administered on 05/11/16 08:50; Start 05/09/16 at 09:00 Divalproex Sodium (Depakote Er) 500 mg HS PO Last administered on 05/09/16 19: 20; Start 05/08/16 at 22:00; Stop 05/10/16 at 10:35; Status DC Sertraline HCl (Zoloft) 200 mg DAILY PO Last administered on 05/11/16 08:50; Start 05/09/16 at 09:00 Buspirone HCl (Buspar) 5 mg BID PO Last administered on 05/11/16 19:38; Start 05/08/16 at 22:00 Acetaminophen (Tylenol) 650 mg PRN Q6HRS PRN PO PAIN / TEMP; Start 05/08/16 at 22:30; Stop 05/09/16 at 05:59; Status DC Multi-Ingredient Ointment (Analgesic [place]) 1 tang PRN QID PRN TP MUSCLE PAIN; Start 05/08/16 at 22:30 Al Hydroxide/Mg Hydroxide (Mylanta Plus Xs) 15 ml PRN AFTMEALHC PRN PO DYSPEPSIA; Start 05/08/16 at 22:30 Magnesium Hydroxide (Milk Of Magnesia) 2,400 mg PRN QHS PRN PO CONSTIPATION; Start 05/08/16 at 22:30; Stop 05/09/16 at 05:59; Status DC Acetaminophen (Tylenol) 650 mg BID PO Last administered on 05/11/16 19:39; Start 05/09/16 at 09:00 Acetaminophen (Tylenol) 650 mg PRN Q6HRS PRN PO MILD PAIN / TEMP; Start at 06:00 Amlodipine Besylate (Norvasc) 5 mg BID PO Last administered on 05/11/16 19:39 ; Start 05/09/16 at 09:00 Aspirin (Bronson Aspirin) 325 mg DAILY08 PO Last administered on 05/11/16 08:51 ; Start 05/09/16 at 08:00 Bisacodyl (Dulcolax Tab) 10 mg PRN DAILY PRN PO CONSTIPATION; Start 05/09/16 at 06:00 Budesonide (Pulmicort) 0.5 mg PRN BID PRN NEB wheezing; Start 05/09/16 at 06:00 Vitamin D (Vitamin D3) 5,000 unit DAILY PO Last administered on 05/11/16 08:50 ; Start 05/09/16 at 09:00 Famotidine (Pepcid) 20 mg DAILY PO Last administered on 05/11/16 08:50; Start 05/09/16 at 09:00 Albuterol/ Ipratropium (Duoneb) 3 ml RTQID NEB Last administered on 05/11/16 19:56; Start 05/09/16 at 08:00 Isosorbide Mononitrate (Imdur) 30 mg DAILY PO Last administered on 05/11/16 08 :51; Start 05/09/16 at 09:00 Levothyroxine Sodium (Synthroid) 25 mcg DAILY07 PO Last administered on 05:42; Start 05/09/16 at 07:00 Magnesium Hydroxide (Milk Of Magnesia) 2,400 mg PRN DAILY PRN PO CONSTIPATION; Start 05/09/16 at 06:00 Artificial Tears (Artificial Tears) 1 drop BID OU Last administered on 19:42; Start 05/09/16 at 09:00 Pregabalin (Lyrica) 50 mg TID PO Last administered on 05/11/16 19:42; Start at 09:00 Trolamine Salicylate (Myoplex) 1 tang PRN QID PRN TP MUSCLE PAIN; Start at 06:00 Brimonidine Tartrate (Alphagan) 1 drop BID OU Last administered on 05/11/16 19 :42; Start 05/09/16 at 09:00 Cefpodoxime Proxetil (Vantin) 200 mg BID PO ; Start 05/09/16 at 09:00; Stop at 09:00; Status DC Fish Oil (Fish Oil) 1,000 mg DAILY PO Last administered on 05/11/16 08:50; Start 05/09/16 at 09:00 Non-Formulary Medication 1 drop BID OU Glaucoma; Start 05/09/16 at 09:00; Status UNV Cefpodoxime Proxetil (Vantin) 200 mg BID PO Last administered on 05/11/16 19: 40; Start 05/09/16 at 09:00 Cyanocobalamin (Vitamin B-12) 1,000 mcg 1X ONCE IM Last administered on 17:14; Start 05/09/16 at 15:10; Stop 05/09/16 at 15:11; Status DC Prenat Multivit/ Sylva/Iron/Folic Ac (Multivitamin ) 1 tab DAILYBFRSUP PO Last administered on 05/11/16 14:45; Start 05/09/16 at 17:00 Divalproex Sodium (Depakote Er) 750 mg QHS PO Last administered on 05/11/16 19 :40; Start 05/10/16 at 21:00 Active Scripts Active Reported Nitrostat (Nitroglycerin) 0.4 Mg Tab.subl 0.4 Mg SL PRN Q3MIN PRN Milk Of Magnesia (Magnesium Hydroxide) 400 Mg/5 Ml Oral.susp 30 Ml PO PRN DAILY PRN Systane 0.3-0.4% Eye Drops (Propylene Glycol/Peg 400/Pf) 1 Each Droperette 1 Drop OU BID Duoneb 0.5-3(2.5) Mg/3 Ml (Albuterol/Ipratropium) 3 Ml Ampul.neb 3 Ml NEB QID Cefuroxime (Cefuroxime Axetil) 250 Mg Tablet 250 Mg PO BID 10 Days Buspirone Hcl 5 Mg Tablet 5 Mg PO BID Artificial Tears (Polyvinyl Alcohol) 15 Ml Drops 1 Drp OP BID Famotidine 20 Mg Tablet 1 Tab PO BID Analgesic Creme (Trolamine Salicylate) 86 Gm Cream..g. 1 Tang TP PRN QID PRN Bisacodyl 10 Mg Supp.rect 10 Mg RC PRN DAILY PRN FOR CONSTIPATION NOT RELIEVED BY MILK OF MAG/MIRALAX/BISACODYL ORAL Bisacodyl 5 Mg Tablet.dr 10 Mg PO PRN DAILY PRN FOR CONSTIPATION NOT RELIEVED BY MILK OF MAGNESIA OR MIRALAX Tylenol (Acetaminophen) 325 Mg Tablet 650 Mg PO PRN Q6HRS PRN Lyrica (Pregabalin) 50 Mg Capsule 50 Mg PO TID Abilify (Aripiprazole) 5 Mg Tablet 5 Mg PO DAILY Vitamin D3 (Cholecalciferol (Vitamin D3)) 1,000 Unit Tablet 5,000 Unit PO DAILY Tylenol (Acetaminophen) 325 Mg Tablet 650 Mg PO BID Zoloft (Sertraline Hcl) 100 Mg Tablet 200 Mg PO DAILY Levothyroxine Sodium 50 Mcg Tablet 25 Mcg PO DAILY06 Isosorbide Mononitrate Er (Isosorbide Mononitrate) 30 Mg Tab.er.24h 30 Mg PO DAILY [place] 3 Fish Oil Softgel ([place]-3 Fatty Acids/Fish Oil) 1 Each Capsule.dr 1,000 Mg PO DAILY Depakote Er (Divalproex Sodium) 500 Mg Tab.er.24h 500 Mg PO HS Budesonide 0.5 Mg/2 Ml Ampul.neb 1 Vial NEB PRN BID PRN Alphagan P (Brimonidine Tartrate) 5 Ml Drops 1 Drop EACHEYE BID Aspirin 325 Mg Tablet 325 Mg PO DAILY08 Amlodipine Besylate 5 Mg Tablet 5 Mg PO BID Diagnosis: Problems: (1) Depression (2) Bipolar affective, mixed, sev w/ psych (3) Anxiety disorder (4) Impulse control disorder (5) Major depressive disorder, recurrent episode FAUSTO GREGORY MD May 11, 2016 21:01
--- NOTE | 2016-05-11 22:07 | NUR ---
Behavior Intervention Response and Plan: BIRP Note: Behavior: Assumed Care of patient, patient located in Day Room at shift change. Patient exhibited the following behavior Interactive, Calm, Cooperative. Brief assessment on rounds of vital signs, medication needs, lab studies, and pain. Treatment plan problems 1 and 2. Intervention: Patient assessed and the following interventions initiated safety checks 15 Minute Checks Cognitive Assessment , Head to toe Assessment , Medications. Response: After interactions and interventions patient responded in the following manner, Calm , Compliant ,Cooperative. Continue to assess behaviors and condition will continue to monitor throughout the shift as needed. Plan: Continue to monitor Master Treatment Plan for patient's progress toward short term goals of Improved Mood, Decreased Anxiety, [facility] goals to return to previous living setting vs placement. Continue to assess patient for changes in above assessment. Monitor for medication needs, pain, and safety concerns. Hourly rounding performed to ensure safe environment.
--- NOTE | 2016-05-12 02:01 | PN ---
DATE: 05/10/2016 This late entry 05/10/2016 covers elements not covered in my initial note. SUBJECTIVE: The patient was staffed at a treatment team meeting with entire team reviewed the patient's history, diagnosis, progress, discharge plans. Appetite 90%, sleeping about 6-7 hours, remains in a wheelchair, cooperative. REVIEW OF SYSTEMS: Ambulation impaired, met with her in her room. No CV, , pulmonary, eye, ENT system symptoms on review. MENTAL STATUS EXAM: Oriented reasonably. Speech is coherent, abstraction fair, computation impaired, language function intact. Mood and affect improved, less labile, less anxious as compared to when she was admitted. LABORATORY DATA: Reviewed. IMPRESSION: Probable bipolar 1 disorder, unspecified; anxiety disorder, unspecified; cyclothymic disorder; cognitive disorder, unspecified. PLAN: Valproic acid level is 28 and increase Depakote ER from 500 mg at bedtime to 750 at bedtime. Follow labs level in 3 days. Continue BuSpar 5 b.i.d., Abilify 5 mg a day, Zoloft 200 mg a day. MAN Marcela GREGORY MD DR: LUBNA/bryant JOB#: [id number] / [id number]
[2016-05-12] MEDS: IPRATRPIUM/ALBUTEROL 0.5/2.5MG 3 ML NEBU. NEB SCH ×4 (05:22→21:24)
[2016-05-12] MEDS: LEVOTHYROXINE 25 MCG TABLET. PO SCH (06:05)
[2016-05-12 06:18] VITALS: BP 155/60
[2016-05-12] MEDS: CHOLECALCIFEROL (VITAMIN D3) 1,000 UNIT TABLET PO SCH (08:46)
[2016-05-12] MEDS: ASPIRIN 325 MG TABLET PO SCH (08:46)
[2016-05-12] MEDS: OMEGA-3 FATTY ACIDS/FISH OIL 1,000 MG CAPSULE. PO SCH (08:47)
[2016-05-12] MEDS: busPIRone 5 MG TABLET. PO SCH ×2 (08:47→20:04)
[2016-05-12] MEDS: ISOSORBIDE MONONITRATE ER 30 MG TAB.ER.24H PO SCH (08:47)
[2016-05-12] MEDS: ARIPIPRAZOLE 5 MG TABLET PO SCH (08:47)
[2016-05-12] MEDS: ACETAMINOPHEN 325 MG TABLET PO SCH ×2 (08:47→20:05)
[2016-05-12] MEDS: CEFPODOXIME PROXETIL 100 MG TABLET PO SCH ×2 (08:47→20:03)
[2016-05-12] MEDS: AMLODIPINE BESYLATE 5 MG TABLET PO SCH ×2 (08:47→20:05)
[2016-05-12] MEDS: FAMOTIDINE 20 MG TABLET PO SCH (08:47)
[2016-05-12] MEDS: SERTRALINE 100 MG TABLET. PO SCH (08:48)
[2016-05-12] MEDS: BRIMONIDINE 0.2% OPHTH SOLUTION 5ML BOTTLE. OU SCH ×2 (08:49→20:07)
[2016-05-12] MEDS: POLYVINYL ALCOHOL 1.4% OPHTH SOLUTION 15ML BOTTLE. OU SCH ×2 (08:49→20:07)
[2016-05-12] MEDS: PREGABALIN 50 MG CAPSULE PO SCH ×3 (08:49→20:08)
--- NOTE | 2016-05-12 10:31 | NUR ---
Behavior Intervention Response and Plan: BIRP Note: Behavior: Assumed Care of patient, patient located in Day Room at shift change. Patient exhibited the following behavior Calm, Cooperative, Compliant. Brief assessment on rounds of vital signs, medication needs, lab studies, and pain. Treatment plan problems . Intervention: Patient assessed and the following interventions initiated safety checks 15 Minute Checks Cognitive Assessment , Head to toe Assessment , Medications. Response: After interactions and interventions patient responded in the following manner, Calm , Cooperative ,Compliant. Continue to assess behaviors and condition will continue to monitor throughout the shift as needed. Plan: Continue to monitor Master Treatment Plan for patient's progress toward short term goals of Decreased Anxiety, Decreased Agitation, correction goals to return to previous living setting vs placement. Continue to assess patient for changes in above assessment. Monitor for medication needs, pain, and safety concerns. Hourly rounding performed to ensure safe environment.
[2016-05-12 16:07] VITALS: BP 164/74
[2016-05-12] MEDS: PRENATAL MULTIVITAMIN TABLET. PO SCH (17:38)
[2016-05-12] MEDS: DIVALPROEX ER 250 MG TAB.ER.24H. PO SCH (20:04)
--- NOTE | 2016-05-12 22:42 | PDOC ---
Exam [place] Demential Exam: [place] Note: Please also refer to the separate dictated note~for this date of service dictated separately.~Patient seen individually. Discussed the patient with Nursing staff reviewed the chart.~Reviewed interim history and current functioning. Reviewed vital signs,~Labs/ Radiology~and current medications noted below. Continue current treatment with the changes noted in the dictated addendum note Assessment: Vital Signs: Vital Signs Date Time Temp Pulse Resp B/P Pulse Ox O2 Delivery O2 Flow Rate FiO2 05/12/16 21:25 98 Room Air 05/12/16 20:05 62 164/74 05/12/16 16:07 97.6 16 I&O Intake and Output 05/12/16 07:00 Intake Total 1320 ml Balance 1320 ml Intake Oral 1320 ml Labs: Laboratory Tests Test 05/12/16 07:45 Glucose (Fingerstick) 97mg/dL (70-99) Current Medications: Meds: Current Medications Aripiprazole (Abilify) 5 mg DAILY PO Last administered on 05/12/16 08:47; Start 05/09/16 at 09:00 Divalproex Sodium (Depakote Er) 500 mg HS PO Last administered on 05/09/16 19: 20; Start 05/08/16 at 22:00; Stop 05/10/16 at 10:35; Status DC Sertraline HCl (Zoloft) 200 mg DAILY PO Last administered on 05/12/16 08:48; Start 05/09/16 at 09:00 Buspirone HCl (Buspar) 5 mg BID PO Last administered on 05/12/16 20:04; Start 05/08/16 at 22:00 Acetaminophen (Tylenol) 650 mg PRN Q6HRS PRN PO PAIN / TEMP; Start 05/08/16 at 22:30; Stop 05/09/16 at 05:59; Status DC Multi-Ingredient Ointment (Analgesic [place]) 1 tang PRN QID PRN TP MUSCLE PAIN; Start 05/08/16 at 22:30 Al Hydroxide/Mg Hydroxide (Mylanta Plus Xs) 15 ml PRN AFTMEALHC PRN PO DYSPEPSIA; Start 05/08/16 at 22:30 Magnesium Hydroxide (Milk Of Magnesia) 2,400 mg PRN QHS PRN PO CONSTIPATION; Start 05/08/16 at 22:30; Stop 05/09/16 at 05:59; Status DC Acetaminophen (Tylenol) 650 mg BID PO Last administered on 05/12/16 20:05; Start 05/09/16 at 09:00 Acetaminophen (Tylenol) 650 mg PRN Q6HRS PRN PO MILD PAIN / TEMP; Start at 06:00 Amlodipine Besylate (Norvasc) 5 mg BID PO Last administered on 05/12/16 20:05 ; Start 05/09/16 at 09:00 Aspirin (Bronson Aspirin) 325 mg DAILY08 PO Last administered on 05/12/16 08:46 ; Start 05/09/16 at 08:00 Bisacodyl (Dulcolax Tab) 10 mg PRN DAILY PRN PO CONSTIPATION; Start 05/09/16 at 06:00 Budesonide (Pulmicort) 0.5 mg PRN BID PRN NEB wheezing; Start 05/09/16 at 06:00 Vitamin D (Vitamin D3) 5,000 unit DAILY PO Last administered on 05/12/16 08:46 ; Start 05/09/16 at 09:00 Famotidine (Pepcid) 20 mg DAILY PO Last administered on 05/12/16 08:47; Start 05/09/16 at 09:00 Albuterol/ Ipratropium (Duoneb) 3 ml RTQID NEB Last administered on 05/12/16 21:24; Start 05/09/16 at 08:00 Isosorbide Mononitrate (Imdur) 30 mg DAILY PO Last administered on 05/12/16 08 :47; Start 05/09/16 at 09:00 Levothyroxine Sodium (Synthroid) 25 mcg DAILY07 PO Last administered on 06:05; Start 05/09/16 at 07:00 Magnesium Hydroxide (Milk Of Magnesia) 2,400 mg PRN DAILY PRN PO CONSTIPATION; Start 05/09/16 at 06:00 Artificial Tears (Artificial Tears) 1 drop BID OU Last administered on 20:07; Start 05/09/16 at 09:00 Pregabalin (Lyrica) 50 mg TID PO Last administered on 05/12/16 20:08; Start at 09:00 Trolamine Salicylate (Myoplex) 1 tang PRN QID PRN TP MUSCLE PAIN; Start at 06:00 Brimonidine Tartrate (Alphagan) 1 drop BID OU Last administered on 05/12/16 20 :07; Start 05/09/16 at 09:00 Cefpodoxime Proxetil (Vantin) 200 mg BID PO ; Start 05/09/16 at 09:00; Stop at 09:00; Status DC Fish Oil (Fish Oil) 1,000 mg DAILY PO Last administered on 05/12/16 08:47; Start 05/09/16 at 09:00 Non-Formulary Medication 1 drop BID OU Glaucoma; Start 05/09/16 at 09:00; Status UNV Cefpodoxime Proxetil (Vantin) 200 mg BID PO Last administered on 05/12/16 20: 03; Start 05/09/16 at 09:00 Cyanocobalamin (Vitamin B-12) 1,000 mcg 1X ONCE IM Last administered on 17:14; Start 05/09/16 at 15:10; Stop 05/09/16 at 15:11; Status DC Prenat Multivit/ Saline/Iron/Folic Ac (Multivitamin ) 1 tab DAILYBFRSUP PO Last administered on 05/12/16 17:38; Start 05/09/16 at 17:00 Divalproex Sodium (Depakote Er) 750 mg QHS PO Last administered on 05/12/16 20 :04; Start 05/10/16 at 21:00 Active Scripts Active Reported Nitrostat (Nitroglycerin) 0.4 Mg Tab.subl 0.4 Mg SL PRN Q3MIN PRN Milk Of Magnesia (Magnesium Hydroxide) 400 Mg/5 Ml Oral.susp 30 Ml PO PRN DAILY PRN Systane 0.3-0.4% Eye Drops (Propylene Glycol/Peg 400/Pf) 1 Each Droperette 1 Drop OU BID Duoneb 0.5-3(2.5) Mg/3 Ml (Albuterol/Ipratropium) 3 Ml Ampul.neb 3 Ml NEB QID Cefuroxime (Cefuroxime Axetil) 250 Mg Tablet 250 Mg PO BID 10 Days Buspirone Hcl 5 Mg Tablet 5 Mg PO BID Artificial Tears (Polyvinyl Alcohol) 15 Ml Drops 1 Drp OP BID Famotidine 20 Mg Tablet 1 Tab PO BID Analgesic Creme (Trolamine Salicylate) 86 Gm Cream..g. 1 Tang TP PRN QID PRN Bisacodyl 10 Mg Supp.rect 10 Mg RC PRN DAILY PRN FOR CONSTIPATION NOT RELIEVED BY MILK OF MAG/MIRALAX/BISACODYL ORAL Bisacodyl 5 Mg Tablet.dr 10 Mg PO PRN DAILY PRN FOR CONSTIPATION NOT RELIEVED BY MILK OF MAGNESIA OR MIRALAX Tylenol (Acetaminophen) 325 Mg Tablet 650 Mg PO PRN Q6HRS PRN Lyrica (Pregabalin) 50 Mg Capsule 50 Mg PO TID Abilify (Aripiprazole) 5 Mg Tablet 5 Mg PO DAILY Vitamin D3 (Cholecalciferol (Vitamin D3)) 1,000 Unit Tablet 5,000 Unit PO DAILY Tylenol (Acetaminophen) 325 Mg Tablet 650 Mg PO BID Zoloft (Sertraline Hcl) 100 Mg Tablet 200 Mg PO DAILY Levothyroxine Sodium 50 Mcg Tablet 25 Mcg PO DAILY06 Isosorbide Mononitrate Er (Isosorbide Mononitrate) 30 Mg Tab.er.24h 30 Mg PO DAILY [place] 3 Fish Oil Softgel ([place]-3 Fatty Acids/Fish Oil) 1 Each Capsule.dr 1,000 Mg PO DAILY Depakote Er (Divalproex Sodium) 500 Mg Tab.er.24h 500 Mg PO HS Budesonide 0.5 Mg/2 Ml Ampul.neb 1 Vial NEB PRN BID PRN Alphagan P (Brimonidine Tartrate) 5 Ml Drops 1 Drop EACHEYE BID Aspirin 325 Mg Tablet 325 Mg PO DAILY08 Amlodipine Besylate 5 Mg Tablet 5 Mg PO BID Diagnosis: Problems: (1) Depression (2) Bipolar affective, mixed, sev w/ psych (3) Anxiety disorder (4) Impulse control disorder (5) Major depressive disorder, recurrent episode FAUSTO GREGORY MD May 12, 2016 22:42
[2016-05-13] MEDS: LEVOTHYROXINE 25 MCG TABLET. PO SCH (05:22)
[2016-05-13] MEDS: IPRATRPIUM/ALBUTEROL 0.5/2.5MG 3 ML NEBU. NEB SCH ×4 (05:26→19:51)
[2016-05-13 06:10] VITALS: BP 145/72
[2016-05-13 08:11] LABS: BASO % 0 % (0-3); EOS # 0.1 x10^3/uL (0.0-0.7); EOS % 1 % (0-3); HEMATOCRIT 31.7 % (36.0-47.0); HEMOGLOBIN 10.3 g/dL (12.0-15.5); LYMPH # 0.9 x10^3/uL (1.0-4.8); LYMPH % 19 % (24-48); MEAN CORPUSCULAR HEMOGLOBIN 29 pg (25-35); MEAN CORPUSCULAR HGB CONC 33 g/dL (31-37); MEAN CORPUSCULAR VOLUME 90 fL (79-100); MONO # 0.4 x10^3/uL (0.0-1.1); MONO % 9 % (0-9); NEUT # 3.2 x10^3uL (1.8-7.7); NEUT % 70 % (31-73); PLATELET COUNT 115 x10^3/uL (140-400); RED BLOOD COUNT 3.53 x10^6/uL (3.50-5.40); RED CELL DISTRIBUTION WIDTH 15.2 % (11.5-14.5); WHITE BLOOD COUNT 4.6 x10^3/uL (4.0-11.0)
[2016-05-13 08:24] LABS: ALBUMIN 3.1 g/dL (3.4-5.0); ALBUMIN/GLOBULIN RATIO 0.8 (1.0-1.7); ALK PHOS 109 U/L (46-116); ALT (SGPT) 15 U/L (14-59); ANION GAP 8 (6-14); AST (SGOT) 9 U/L (15-37); BLOOD UREA NITROGEN 33 mg/dL (7-20); BUN/CREATININE RATIO 22 (6-20); CALCIUM 9.7 mg/dL (8.5-10.1); CARBON DIOXIDE 26 mmol/L (21-32); CHLORIDE 109 mmol/L (98-107); CREATININE 1.5 mg/dL (0.6-1.0); GFR 33.3; GLUCOSE 116 mg/dL (70-99); POTASSIUM 5.2 mmol/L (3.5-5.1); SODIUM 143 mmol/L (136-145); TOTAL BILIRUBIN 0.2 mg/dL (0.2-1.0); TOTAL PROTEIN 6.8 g/dL (6.4-8.2)
[2016-05-13 08:26] LABS: VAL ACID 36 mcg/mL (50-100)
[2016-05-13] MEDS: CHOLECALCIFEROL (VITAMIN D3) 1,000 UNIT TABLET PO SCH (08:29)
[2016-05-13] MEDS: PREGABALIN 50 MG CAPSULE PO SCH ×3 (08:29→19:59)
[2016-05-13] MEDS: SERTRALINE 100 MG TABLET. PO SCH (08:30)
[2016-05-13] MEDS: ACETAMINOPHEN 325 MG TABLET PO SCH ×2 (08:30→20:01)
[2016-05-13] MEDS: ISOSORBIDE MONONITRATE ER 30 MG TAB.ER.24H PO SCH (08:30)
[2016-05-13] MEDS: ASPIRIN 325 MG TABLET PO SCH (08:30)
[2016-05-13] MEDS: ARIPIPRAZOLE 5 MG TABLET PO SCH (08:30)
[2016-05-13] MEDS: OMEGA-3 FATTY ACIDS/FISH OIL 1,000 MG CAPSULE. PO SCH (08:30)
[2016-05-13] MEDS: FAMOTIDINE 20 MG TABLET PO SCH (08:30)
[2016-05-13] MEDS: busPIRone 5 MG TABLET. PO SCH ×2 (08:30→20:00)
[2016-05-13] MEDS: AMLODIPINE BESYLATE 5 MG TABLET PO SCH ×2 (08:31→20:00)
[2016-05-13] MEDS: POLYVINYL ALCOHOL 1.4% OPHTH SOLUTION 15ML BOTTLE. OU SCH ×2 (08:31→20:04)
[2016-05-13] MEDS: BRIMONIDINE 0.2% OPHTH SOLUTION 5ML BOTTLE. OU SCH ×2 (08:31→20:05)
[2016-05-13] MEDS: CEFPODOXIME PROXETIL 100 MG TABLET PO SCH ×2 (08:31→19:59)
--- NOTE | 2016-05-13 10:35 | NUR ---
Behavior Intervention Response and Plan: BIRP Note: Behavior: Assumed Care of patient, patient located in Day Room at shift change. Patient exhibited the following behavior Calm, Appropriate, Compliant. Brief assessment on rounds of vital signs, medication needs, lab studies, and pain. Treatment plan problems . Intervention: Patient assessed and the following interventions initiated safety checks 15 Minute Checks Head to toe Assessment , Medications , Oral Hydration. Response: After interactions and interventions patient responded in the following manner, Calm , Social ,Cooperative. Continue to assess behaviors and condition will continue to monitor throughout the shift as needed. Plan: Continue to monitor Master Treatment Plan for patient's progress toward short term goals of Improved Mood, No harm To self/ others, long term care social worker goals to return to previous living setting vs placement. Continue to assess patient for changes in above assessment. Monitor for medication needs, pain, and safety concerns. Hourly rounding performed to ensure safe environment.
[2016-05-13] MEDS: PRENATAL MULTIVITAMIN TABLET. PO SCH (14:21)
[2016-05-13 15:58] VITALS: BP 156/70
[2016-05-13] MEDS ORDERED: DIVALPROEX ER 500 MG TAB.ER.24H PO SCH (21:00)
--- NOTE | 2016-05-13 21:07 | PDOC ---
Exam Chester Demential Exam: [place] Note: Please also refer to the separate dictated note~for this date of service dictated separately.~Patient seen individually. Discussed the patient with Nursing staff reviewed the chart.~Reviewed interim history and current functioning. Reviewed vital signs,~Labs/ Radiology~and current medications noted below. Continue current treatment with the changes noted in the dictated addendum note Assessment: Vital Signs: Vital Signs Date Time Temp Pulse Resp B/P Pulse Ox O2 Delivery O2 Flow Rate FiO2 05/13/16 20:00 65 156/70 05/13/16 19:50 98 Room Air 05/13/16 15:58 97.4 20 I&O Intake and Output 05/13/16 07:00 Intake Total 840 ml Balance 840 ml Intake Oral 840 ml Labs: Laboratory Tests Test 05/13/16 07:28 05/13/16 07:55 Glucose (Fingerstick) 107mg/dL (70-99) H White Blood Count 4.6x10^3/uL (4.0-11.0) Red Blood Count 3.53x10^6/uL (3.50-5.40) Hemoglobin 10.3g/dL (12.0-15.5) L Hematocrit 31.7% (36.0-47.0) L Mean Corpuscular Volume 90fL (79-100) Mean Corpuscular Hemoglobin 29pg (25-35) Mean Corpuscular Hemoglobin Concent 33g/dL (31-37) Red Cell Distribution Width 15.2% (11.5-14.5) H Platelet Count 115x10^3/uL (140-400) L Neutrophils (%) (Auto) 70% (31-73) Lymphocytes (%) (Auto) 19% (24-48) L Monocytes (%) (Auto) 9% (0-9) Eosinophils (%) (Auto) 1% (0-3) Basophils (%) (Auto) 0% (0-3) Neutrophils # (Auto) 3.2x10^3uL (1.8-7.7) Lymphocytes # (Auto) 0.9x10^3/uL (1.0-4.8) L Monocytes # (Auto) 0.4x10^3/uL (0.0-1.1) Eosinophils # (Auto) 0.1x10^3/uL (0.0-0.7) Basophils # (Auto) 0.0x10^3/uL (0.0-0.2) Sodium Level 143mmol/L (136-145) Potassium Level 5.2mmol/L (3.5-5.1) H Chloride Level 109mmol/L (98-107) H Carbon Dioxide Level 26mmol/L (21-32) Anion Gap 8 (6-14) Blood Urea Nitrogen 33mg/dL (7-20) H Creatinine 1.5mg/dL (0.6-1.0) H Estimated GFR (Cockcroft-Gault) 33.3 BUN/Creatinine Ratio 22 (6-20) H Glucose Level 116mg/dL (70-99) H Calcium Level 9.7mg/dL (8.5-10.1) Total Bilirubin 0.2mg/dL (0.2-1.0) Aspartate Amino Transferase (AST) 9U/L (15-37) L Alanine Aminotransferase (ALT) 15U/L (14-59) Alkaline Phosphatase 109U/L (46-116) Total Protein 6.8g/dL (6.4-8.2) Albumin 3.1g/dL (3.4-5.0) L Albumin/Globulin Ratio 0.8 (1.0-1.7) L Valproic Acid Level 36mcg/mL (50-100) L Valproic Acid Last Dose Date 05/12/16 Valproic Acid Last Dose Time 2100 Current Medications: Meds: Current Medications Aripiprazole (Abilify) 5 mg DAILY PO Last administered on 05/13/16 08:30; Start 05/09/16 at 09:00 Divalproex Sodium (Depakote Er) 500 mg HS PO Last administered on 05/09/16 19: 20; Start 05/08/16 at 22:00; Stop 05/10/16 at 10:35; Status DC Sertraline HCl (Zoloft) 200 mg DAILY PO Last administered on 05/13/16 08:30; Start 05/09/16 at 09:00 Buspirone HCl (Buspar) 5 mg BID PO Last administered on 05/13/16 20:00; Start 05/08/16 at 22:00 Acetaminophen (Tylenol) 650 mg PRN Q6HRS PRN PO PAIN / TEMP; Start 05/08/16 at 22:30; Stop 05/09/16 at 05:59; Status DC Multi-Ingredient Ointment (Analgesic [place]) 1 tang PRN QID PRN TP MUSCLE PAIN; Start 05/08/16 at 22:30 Al Hydroxide/Mg Hydroxide (Mylanta Plus Xs) 15 ml PRN AFTMEALHC PRN PO DYSPEPSIA; Start 05/08/16 at 22:30 Magnesium Hydroxide (Milk Of Magnesia) 2,400 mg PRN QHS PRN PO CONSTIPATION; Start 05/08/16 at 22:30; Stop 05/09/16 at 05:59; Status DC Acetaminophen (Tylenol) 650 mg BID PO Last administered on 05/13/16 20:01; Start 05/09/16 at 09:00 Acetaminophen (Tylenol) 650 mg PRN Q6HRS PRN PO MILD PAIN / TEMP; Start at 06:00 Amlodipine Besylate (Norvasc) 5 mg BID PO Last administered on 05/13/16 20:00 ; Start 05/09/16 at 09:00 Aspirin (Bronson Aspirin) 325 mg DAILY08 PO Last administered on 05/13/16 08:30 ; Start 05/09/16 at 08:00 Bisacodyl (Dulcolax Tab) 10 mg PRN DAILY PRN PO CONSTIPATION; Start 05/09/16 at 06:00 Budesonide (Pulmicort) 0.5 mg PRN BID PRN NEB wheezing; Start 05/09/16 at 06:00 Vitamin D (Vitamin D3) 5,000 unit DAILY PO Last administered on 05/13/16 08:29 ; Start 05/09/16 at 09:00 Famotidine (Pepcid) 20 mg DAILY PO Last administered on 05/13/16 08:30; Start 05/09/16 at 09:00 Albuterol/ Ipratropium (Duoneb) 3 ml RTQID NEB Last administered on 05/13/16 19:51; Start 05/09/16 at 08:00 Isosorbide Mononitrate (Imdur) 30 mg DAILY PO Last administered on 05/13/16 08 :30; Start 05/09/16 at 09:00 Levothyroxine Sodium (Synthroid) 25 mcg DAILY07 PO Last administered on 05:22; Start 05/09/16 at 07:00 Magnesium Hydroxide (Milk Of Magnesia) 2,400 mg PRN DAILY PRN PO CONSTIPATION; Start 05/09/16 at 06:00 Artificial Tears (Artificial Tears) 1 drop BID OU Last administered on 20:04; Start 05/09/16 at 09:00 Pregabalin (Lyrica) 50 mg TID PO Last administered on 05/13/16 19:59; Start at 09:00 Trolamine Salicylate (Myoplex) 1 tang PRN QID PRN TP MUSCLE PAIN; Start at 06:00 Brimonidine Tartrate (Alphagan) 1 drop BID OU Last administered on 05/13/16 20 :05; Start 05/09/16 at 09:00 Cefpodoxime Proxetil (Vantin) 200 mg BID PO ; Start 05/09/16 at 09:00; Stop at 09:00; Status DC Fish Oil (Fish Oil) 1,000 mg DAILY PO Last administered on 05/13/16 08:30; Start 05/09/16 at 09:00 Non-Formulary Medication 1 drop BID OU Glaucoma; Start 05/09/16 at 09:00; Status UNV Cefpodoxime Proxetil (Vantin) 200 mg BID PO Last administered on 05/13/16 19: 59; Start 05/09/16 at 09:00 Cyanocobalamin (Vitamin B-12) 1,000 mcg 1X ONCE IM Last administered on 17:14; Start 05/09/16 at 15:10; Stop 05/09/16 at 15:11; Status DC Prenat Multivit/ [place]/Iron/Folic Ac (Multivitamin ) 1 tab DAILYBFRSUP PO Last administered on 05/13/16 14:21; Start 05/09/16 at 17:00 Divalproex Sodium (Depakote Er) 750 mg QHS PO Last administered on 05/12/16 20 :04; Start 05/10/16 at 21:00; Stop 05/13/16 at 15:55; Status DC Divalproex Sodium (Depakote Er) 1,000 mg QHS PO Last administered on 05/13/16t 20:03; Start 05/13/16 at 21:00 Active Scripts Active Reported Nitrostat (Nitroglycerin) 0.4 Mg Tab.subl 0.4 Mg SL PRN Q3MIN PRN Milk Of Magnesia (Magnesium Hydroxide) 400 Mg/5 Ml Oral.susp 30 Ml PO PRN DAILY PRN Systane 0.3-0.4% Eye Drops (Propylene Glycol/Peg 400/Pf) 1 Each Droperette 1 Drop OU BID Duoneb 0.5-3(2.5) Mg/3 Ml (Albuterol/Ipratropium) 3 Ml Ampul.neb 3 Ml NEB QID Cefuroxime (Cefuroxime Axetil) 250 Mg Tablet 250 Mg PO BID 10 Days Buspirone Hcl 5 Mg Tablet 5 Mg PO BID Artificial Tears (Polyvinyl Alcohol) 15 Ml Drops 1 Drp OP BID Famotidine 20 Mg Tablet 1 Tab PO BID Analgesic Creme (Trolamine Salicylate) 86 Gm Cream..g. 1 Tang TP PRN QID PRN Bisacodyl 10 Mg Supp.rect 10 Mg RC PRN DAILY PRN FOR CONSTIPATION NOT RELIEVED BY MILK OF MAG/MIRALAX/BISACODYL ORAL Bisacodyl 5 Mg Tablet.dr 10 Mg PO PRN DAILY PRN FOR CONSTIPATION NOT RELIEVED BY MILK OF MAGNESIA OR MIRALAX Tylenol (Acetaminophen) 325 Mg Tablet 650 Mg PO PRN Q6HRS PRN Lyrica (Pregabalin) 50 Mg Capsule 50 Mg PO TID Abilify (Aripiprazole) 5 Mg Tablet 5 Mg PO DAILY Vitamin D3 (Cholecalciferol (Vitamin D3)) 1,000 Unit Tablet 5,000 Unit PO DAILY Tylenol (Acetaminophen) 325 Mg Tablet 650 Mg PO BID Zoloft (Sertraline Hcl) 100 Mg Tablet 200 Mg PO DAILY Levothyroxine Sodium 50 Mcg Tablet 25 Mcg PO DAILY06 Isosorbide Mononitrate Er (Isosorbide Mononitrate) 30 Mg Tab.er.24h 30 Mg PO DAILY [place] 3 Fish Oil Softgel ([place]-3 Fatty Acids/Fish Oil) 1 Each Capsule.dr 1,000 Mg PO DAILY Depakote Er (Divalproex Sodium) 500 Mg Tab.er.24h 500 Mg PO HS Budesonide 0.5 Mg/2 Ml Ampul.neb 1 Vial NEB PRN BID PRN Alphagan P (Brimonidine Tartrate) 5 Ml Drops 1 Drop EACHEYE BID Aspirin 325 Mg Tablet 325 Mg PO DAILY08 Amlodipine Besylate 5 Mg Tablet 5 Mg PO BID Diagnosis: Problems: (1) Depression (2) Bipolar affective, mixed, sev w/ psych (3) Anxiety disorder (4) Impulse control disorder (5) Major depressive disorder, recurrent episode FAUSTO GREGORY MD May 13, 2016 21:07
--- NOTE | 2016-05-13 21:30 | PN ---
DATE: 05/11/2016 This is a late entry for 05/11/2016, covers elements not covered in my initial note. SUBJECTIVE: The patient remains fairly calm, compliant, appropriate, not agitated or aggressive, not talking about dying. REVIEW OF SYSTEMS: No CV, , pulmonary, eye system symptoms on review. Gait unsteady. MENTAL STATUS EXAM: Oriented reasonably. Speech is coherent. She is pleasant. Verbal, abstraction fair, computation impaired. Mood and affect is improved. IMPRESSION: Unchanged from initial note. PLAN: Continue current psychotropics. Valproic acid level is low at 28, but clinically she is doing well enough, but we may still increase it gradually depending on her progress. MAN Marcela GREGORY MD DR: LUBNA/bryant JOB#: [id number] / [id number]
--- NOTE | 2016-05-13 21:32 | PN ---
DATE: 05/12/2016 This is a late entry for 05/12/2016, covers elements not covered in my initial note. SUBJECTIVE: Overall, the patient has been fairly cooperative, denies talking about dying, confusion appears better. REVIEW OF SYSTEMS: Ambulation impaired. No CV, , pulmonary, eye system symptoms on review. Reliability poor. MENTAL STATUS EXAM: Reasonably oriented. Speech coherent, pleasant, verbal, abstraction fair, computation impaired. Appetite is good. Mood and affect appeared improved. IMPRESSION: Unchanged from initial note. PLAN: Increase Depakote ER from 750 at bedtime to 1000 mg at bedtime. Check lab levels in 3 days since the initial level is low at 28. Continue Zoloft, Abilify, BuSpar at current dosage. MAN Marcela GREGORY MD DR: LUBNA/bryant JOB#: [id number] / [id number]
--- NOTE | 2016-05-13 23:19 | NUR ---
Behavior Intervention Response and Plan: BIRP Note: Behavior: Assumed Care of patient, patient located in Day Room at shift change. Patient exhibited the following behavior Interactive, Calm, Appropriate. Brief assessment on rounds of vital signs, medication needs, lab studies, and pain. Treatment plan problems:1-2 Intervention: Patient assessed and the following interventions initiated safety checks 15 Minute Checks Cognitive Assessment , Head to toe Assessment , Medications. Response: After interactions and interventions patient responded in the following manner, Calm , Cooperative ,Calm. Continue to assess behaviors and condition will continue to monitor throughout the shift as needed. 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 Continue to assess patient for changes in above assessment. Monitor for medication needs, pain, and safety concerns. Hourly rounding performed to ensure safe environment.
[2016-05-14] MEDS: IPRATRPIUM/ALBUTEROL 0.5/2.5MG 3 ML NEBU. NEB SCH ×4 (05:38→20:07)
[2016-05-14] MEDS: LEVOTHYROXINE 25 MCG TABLET. PO SCH (05:48)
[2016-05-14 06:24] VITALS: BP 159/65
[2016-05-14] MEDS: busPIRone 5 MG TABLET. PO SCH ×2 (08:22→20:49)
[2016-05-14] MEDS: PREGABALIN 50 MG CAPSULE PO SCH ×3 (08:22→20:56)
[2016-05-14] MEDS: FAMOTIDINE 20 MG TABLET PO SCH (08:22)
[2016-05-14] MEDS: ISOSORBIDE MONONITRATE ER 30 MG TAB.ER.24H PO SCH (08:22)
[2016-05-14] MEDS: AMLODIPINE BESYLATE 5 MG TABLET PO SCH ×2 (08:22→20:52)
[2016-05-14] MEDS: ARIPIPRAZOLE 5 MG TABLET PO SCH (08:22)
[2016-05-14] MEDS: CHOLECALCIFEROL (VITAMIN D3) 1,000 UNIT TABLET PO SCH (08:23)
[2016-05-14] MEDS: ACETAMINOPHEN 325 MG TABLET PO SCH ×2 (08:23→20:49)
[2016-05-14] MEDS: ASPIRIN 325 MG TABLET PO SCH (08:23)
[2016-05-14] MEDS: CEFPODOXIME PROXETIL 100 MG TABLET PO SCH ×2 (08:23→20:48)
[2016-05-14] MEDS: OMEGA-3 FATTY ACIDS/FISH OIL 1,000 MG CAPSULE. PO SCH (08:23)
[2016-05-14] MEDS: SERTRALINE 100 MG TABLET. PO SCH (08:23)
[2016-05-14] MEDS: POLYVINYL ALCOHOL 1.4% OPHTH SOLUTION 15ML BOTTLE. OU SCH ×2 (08:24→20:53)
[2016-05-14] MEDS: BRIMONIDINE 0.2% OPHTH SOLUTION 5ML BOTTLE. OU SCH ×2 (08:24→20:53)
[2016-05-14] MEDS: MAGNESIUM HYDROXIDE 2,400 MG/30 ML ORAL.SUSP. PO PRN (08:33)
--- NOTE | 2016-05-14 09:59 | NUR ---
Viktoriya from Aging is here to complete assessment regarding level II. Pt will will trigger for level two information needed for level II was provided to Viktoriya with aging.
--- NOTE | 2016-05-14 10:36 | NUR ---
Behavior Intervention Response and Plan: BIRP Note: Behavior: Assumed Care of patient, patient located in Day Room at shift change. Patient exhibited the following behavior Calm, Compliant, Cooperative. Brief assessment on rounds of vital signs, medication needs, lab studies, and pain. Treatment plan problems . Intervention: Patient assessed and the following interventions initiated safety checks 15 Minute Checks Cognitive Assessment , Head to toe Assessment , Medications. Response: After interactions and interventions patient responded in the following manner, Cooperative , Compliant ,Calm. Continue to assess behaviors and condition will continue to monitor throughout the shift as needed. 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 Continue to assess patient for changes in above assessment. Monitor for medication needs, pain, and safety concerns. Hourly rounding performed to ensure safe environment.
--- NOTE | 2016-05-14 14:00 | NUR ---
THERAPEUTIC RECREATION GROUP NOTE TITLE :Card Games: Slap Kevin, Spoons, Higher/Lower ACTIVITY : Activities and Games GOAL : Increase social interaction, fine motor skills. Maintain or improve mental functioning. Decrease restlessness DURATION : 60 minutes RESPONSE : Full participation the entire time. Pt. was playful, explained rooms to group and needed minimal prompting throughout the activity. Pt. was open to learning new games and was pleasant to be around. Pt. smiled and cheered when she won.
[2016-05-14 15:18] LABS: CALCIUM 9.5 mg/dL (8.5-10.1); CREATININE 1.6 mg/dL (0.6-1.0); GFR 30.9; POTASSIUM 5.5 mmol/L (3.5-5.1)
[2016-05-14 16:20] VITALS: BP 155/74
--- NOTE | 2016-05-14 16:57 | NUR ---
Dr. Elias informed of pt's K 5.5. New orders received. Will continue to monitor.
[2016-05-14] MEDS ORDERED: LACTULOSE 20 GM/30 ML SOLUTION. PO PRN (17:00)
[2016-05-14] MEDS ORDERED: SODIUM POLYSTYRENE SULFONATE 15 GM/60 ML ORAL.SUSP. PO ONE (17:15)
[2016-05-14] MEDS: PRENATAL MULTIVITAMIN TABLET. PO SCH (17:52)
[2016-05-14] MEDS: LACTULOSE 20 GM/30 ML SOLUTION. PO SCH ×2 (17:52→20:50)
[2016-05-14] MEDS: DIVALPROEX ER 500 MG TAB.ER.24H PO SCH (20:47)
[2016-05-14] MEDS: DIVALPROEX ER 250 MG TAB.ER.24H. PO SCH (20:49)
--- NOTE | 2016-05-14 21:02 | PDOC ---
Exam [place] Demential Exam: [place] Note: Please also refer to the separate dictated note~for this date of service dictated separately.~Patient seen individually. Discussed the patient with Nursing staff reviewed the chart.~Reviewed interim history and current functioning. Reviewed vital signs,~Labs/ Radiology~and current medications noted below. Continue current treatment with the changes noted in the dictated addendum note Assessment: Vital Signs: Vital Signs Date Time Temp Pulse Resp B/P Pulse Ox O2 Delivery O2 Flow Rate FiO2 05/14/16 20:52 67 155/74 05/14/16 20:07 98 Room Air 05/14/16 16:20 96.9 18 I&O Intake and Output 05/14/16 07:00 Intake Total 1080 ml Balance 1080 ml Intake Oral 1080 ml Labs: Laboratory Tests Test 05/14/16 07:37 05/14/16 14:57 Glucose (Fingerstick) 106mg/dL (70-99) H Sodium Level 141mmol/L (136-145) Potassium Level 5.5mmol/L (3.5-5.1) H Chloride Level 108mmol/L (98-107) H Carbon Dioxide Level 29mmol/L (21-32) Anion Gap 4 (6-14) L Blood Urea Nitrogen 34mg/dL (7-20) H Creatinine 1.6mg/dL (0.6-1.0) H Estimated GFR (Cockcroft-Gault) 30.9 Glucose Level 126mg/dL (70-99) H Calcium Level 9.5mg/dL (8.5-10.1) Current Medications: Meds: Current Medications Aripiprazole (Abilify) 5 mg DAILY PO Last administered on 05/14/16 08:22; Start 05/09/16 at 09:00 Divalproex Sodium (Depakote Er) 500 mg HS PO Last administered on 05/09/16 19: 20; Start 05/08/16 at 22:00; Stop 05/10/16 at 10:35; Status DC Sertraline HCl (Zoloft) 200 mg DAILY PO Last administered on 05/14/16 08:23; Start 05/09/16 at 09:00 Buspirone HCl (Buspar) 5 mg BID PO Last administered on 05/14/16 20:49; Start 05/08/16 at 22:00 Acetaminophen (Tylenol) 650 mg PRN Q6HRS PRN PO PAIN / TEMP; Start 05/08/16 at 22:30; Stop 05/09/16 at 05:59; Status DC Multi-Ingredient Ointment (Analgesic [place]) 1 tang PRN QID PRN TP MUSCLE PAIN; Start 05/08/16 at 22:30 Al Hydroxide/Mg Hydroxide (Mylanta Plus Xs) 15 ml PRN AFTMEALHC PRN PO DYSPEPSIA; Start 05/08/16 at 22:30 Magnesium Hydroxide (Milk Of Magnesia) 2,400 mg PRN QHS PRN PO CONSTIPATION; Start 05/08/16 at 22:30; Stop 05/09/16 at 05:59; Status DC Acetaminophen (Tylenol) 650 mg BID PO Last administered on 05/14/16 20:49; Start 05/09/16 at 09:00 Acetaminophen (Tylenol) 650 mg PRN Q6HRS PRN PO MILD PAIN / TEMP; Start at 06:00 Amlodipine Besylate (Norvasc) 5 mg BID PO Last administered on 05/14/16 20:52 ; Start 05/09/16 at 09:00 Aspirin (Bronson Aspirin) 325 mg DAILY08 PO Last administered on 05/14/16 08:23 ; Start 05/09/16 at 08:00 Bisacodyl (Dulcolax Tab) 10 mg PRN DAILY PRN PO CONSTIPATION; Start 05/09/16 at 06:00 Budesonide (Pulmicort) 0.5 mg PRN BID PRN NEB wheezing; Start 05/09/16 at 06:00 Vitamin D (Vitamin D3) 5,000 unit DAILY PO Last administered on 05/14/16 08:23 ; Start 05/09/16 at 09:00 Famotidine (Pepcid) 20 mg DAILY PO Last administered on 05/14/16 08:22; Start 05/09/16 at 09:00 Albuterol/ Ipratropium (Duoneb) 3 ml RTQID NEB Last administered on 05/14/16 20:07; Start 05/09/16 at 08:00 Isosorbide Mononitrate (Imdur) 30 mg DAILY PO Last administered on 05/14/16 08 :22; Start 05/09/16 at 09:00 Levothyroxine Sodium (Synthroid) 25 mcg DAILY07 PO Last administered on 05:48; Start 05/09/16 at 07:00 Magnesium Hydroxide (Milk Of Magnesia) 2,400 mg PRN DAILY PRN PO CONSTIPATION Last administered on 05/14/16 08:33; Start 05/09/16 at 06:00 Artificial Tears (Artificial Tears) 1 drop BID OU Last administered on 20:53; Start 05/09/16 at 09:00 Pregabalin (Lyrica) 50 mg TID PO Last administered on 05/14/16 20:56; Start at 09:00 Trolamine Salicylate (Myoplex) 1 tang PRN QID PRN TP MUSCLE PAIN; Start at 06:00 Brimonidine Tartrate (Alphagan) 1 drop BID OU Last administered on 05/14/16 20 :53; Start 05/09/16 at 09:00 Cefpodoxime Proxetil (Vantin) 200 mg BID PO ; Start 05/09/16 at 09:00; Stop at 09:00; Status DC Fish Oil (Fish Oil) 1,000 mg DAILY PO Last administered on 05/14/16 08:23; Start 05/09/16 at 09:00 Non-Formulary Medication 1 drop BID OU Glaucoma; Start 05/09/16 at 09:00; Status UNV Cefpodoxime Proxetil (Vantin) 200 mg BID PO Last administered on 05/14/16 20: 48; Start 05/09/16 at 09:00 Cyanocobalamin (Vitamin B-12) 1,000 mcg 1X ONCE IM Last administered on 17:14; Start 05/09/16 at 15:10; Stop 05/09/16 at 15:11; Status DC Prenat Multivit/ [place]/Iron/Folic Ac (Multivitamin ) 1 tab DAILYBFRSUP PO Last administered on 05/14/16 17:52; Start 05/09/16 at 17:00 Divalproex Sodium (Depakote Er) 750 mg QHS PO Last administered on 05/12/16 20 :04; Start 05/10/16 at 21:00; Stop 05/13/16 at 15:55; Status DC Divalproex Sodium (Depakote Er) 1,000 mg QHS PO Last administered on 05/13/16 20:03; Start 05/13/16 at 21:00; Stop 05/14/16 at 13:14; Status DC Divalproex Sodium (Depakote Er) 250 mg HS PO Last administered on 05/14/16 20: 49; Start 05/14/16 at 21:00 Divalproex Sodium (Depakote Er) 1,000 mg QHS PO Last administered on 05/14/16 20:47; Start 05/14/16 at 21:00 Sodium Polystyrene Sulfonate (Kayexalate) 15 gm 1X ONCE PO Last administered on 05/14/16 17:52; Start 05/14/16 at 17:15; Stop 05/14/16 at 17:16; Status DC Lactulose 30 gm PRN BID PRN PO CONSTIPATION; Start 05/14/16 at 17:00; Stop at 17:10; Status DC Lactulose 30 gm BID PO Last administered on 05/14/16 20:50; Start 05/14/16 at 17:30; Stop 05/14/16 at 21:01; Status DC Active Scripts Active Reported Nitrostat (Nitroglycerin) 0.4 Mg Tab.subl 0.4 Mg SL PRN Q3MIN PRN Milk Of Magnesia (Magnesium Hydroxide) 400 Mg/5 Ml Oral.susp 30 Ml PO PRN DAILY PRN Systane 0.3-0.4% Eye Drops (Propylene Glycol/Peg 400/Pf) 1 Each Droperette 1 Drop OU BID Duoneb 0.5-3(2.5) Mg/3 Ml (Albuterol/Ipratropium) 3 Ml Ampul.neb 3 Ml NEB QID Cefuroxime (Cefuroxime Axetil) 250 Mg Tablet 250 Mg PO BID 10 Days Buspirone Hcl 5 Mg Tablet 5 Mg PO BID Artificial Tears (Polyvinyl Alcohol) 15 Ml Drops 1 Drp OP BID Famotidine 20 Mg Tablet 1 Tab PO BID Analgesic Creme (Trolamine Salicylate) 86 Gm Cream..g. 1 Tang TP PRN QID PRN Bisacodyl 10 Mg Supp.rect 10 Mg RC PRN DAILY PRN FOR CONSTIPATION NOT RELIEVED BY MILK OF MAG/MIRALAX/BISACODYL ORAL Bisacodyl 5 Mg Tablet.dr 10 Mg PO PRN DAILY PRN FOR CONSTIPATION NOT RELIEVED BY MILK OF MAGNESIA OR MIRALAX Tylenol (Acetaminophen) 325 Mg Tablet 650 Mg PO PRN Q6HRS PRN Lyrica (Pregabalin) 50 Mg Capsule 50 Mg PO TID Abilify (Aripiprazole) 5 Mg Tablet 5 Mg PO DAILY Vitamin D3 (Cholecalciferol (Vitamin D3)) 1,000 Unit Tablet 5,000 Unit PO DAILY Tylenol (Acetaminophen) 325 Mg Tablet 650 Mg PO BID Zoloft (Sertraline Hcl) 100 Mg Tablet 200 Mg PO DAILY Levothyroxine Sodium 50 Mcg Tablet 25 Mcg PO DAILY06 Isosorbide Mononitrate Er (Isosorbide Mononitrate) 30 Mg Tab.er.24h 30 Mg PO DAILY [place] 3 Fish Oil Softgel ([place]-3 Fatty Acids/Fish Oil) 1 Each Capsule.dr 1,000 Mg PO DAILY Depakote Er (Divalproex Sodium) 500 Mg Tab.er.24h 500 Mg PO HS Budesonide 0.5 Mg/2 Ml Ampul.neb 1 Vial NEB PRN BID PRN Alphagan P (Brimonidine Tartrate) 5 Ml Drops 1 Drop EACHEYE BID Aspirin 325 Mg Tablet 325 Mg PO DAILY08 Amlodipine Besylate 5 Mg Tablet 5 Mg PO BID Diagnosis: Problems: (1) Depression (2) Bipolar affective, mixed, sev w/ psych (3) Anxiety disorder (4) Impulse control disorder (5) Major depressive disorder, recurrent episode FAUSTO GREGORY MD May 14, 2016 21:02
--- NOTE | 2016-05-14 21:22 | NUR ---
Behavior Intervention Response and Plan: BIRP Note: Behavior: Assumed Care of patient, patient located in Day Room at shift change. Patient exhibited the following behavior Calm, Interactive, Social. Brief assessment on rounds of vital signs, medication needs, lab studies, and pain. Treatment plan problems 1 and 2. Intervention: Patient assessed and the following interventions initiated safety checks 15 Minute Checks Cognitive Assessment , Head to toe Assessment , Medications. Response: After interactions and interventions patient responded in the following manner, Calm , Compliant ,Cooperative. Continue to assess behaviors and condition will continue to monitor throughout the shift as needed. 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 Continue to assess patient for changes in above assessment. Monitor for medication needs, pain, and safety concerns. Hourly rounding performed to ensure safe environment.
--- NOTE | 2016-05-14 22:36 | PN ---
DATE: 05/13/2016 PSYCHIATRIC PROGRESS NOTE This is a late entry 05/13/2016 covers elements not covered in my initial note. SUBJECTIVE: Per nursing report, the patient has been calm, medication compliant, and cooperative with the assessment and cares. Denies suicidal ideation. REVIEW OF SYSTEMS: Ambulation impaired in a wheelchair. No CV, , pulmonary, eye, ENT system symptoms on review. She is very pleasant, smiling, and interactive as I met with her and this is typically how she presents. MENTAL STATUS EXAM: Reasonably oriented. Speech coherent, abstraction fair, computation impaired, language function intact, attention span fair. Mood and affect appears stable, very appreciative of my visit. LABORATORY DATA: Reviewed. 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 PLAN: Continue current psychotropics mentioned in my initial note. Valproic acid level is 36. We will increase the Depakote ER to 1250 mg at bedtime. Check labs level in 3 days in an attempt to reach a therapeutic level. MAN Marcela GREGORY MD DR: LUBNA/bryant JOB#: [id number] / [id number]
[2016-05-15] MEDS: LEVOTHYROXINE 25 MCG TABLET. PO SCH (06:02)
[2016-05-15] MEDS: IPRATRPIUM/ALBUTEROL 0.5/2.5MG 3 ML NEBU. NEB SCH ×4 (06:08→20:32)
[2016-05-15 06:39] VITALS: BP 138/67
[2016-05-15 06:59] LABS: CALCIUM 9.2 mg/dL (8.5-10.1); CREATININE 1.5 mg/dL (0.6-1.0); GFR 33.3; POTASSIUM 4.9 mmol/L (3.5-5.1)
[2016-05-15 07:06] LABS: VAL ACID 41 mcg/mL (50-100)
[2016-05-15] MEDS: FAMOTIDINE 20 MG TABLET PO SCH (08:58)
[2016-05-15] MEDS: ISOSORBIDE MONONITRATE ER 30 MG TAB.ER.24H PO SCH (08:58)
[2016-05-15] MEDS: OMEGA-3 FATTY ACIDS/FISH OIL 1,000 MG CAPSULE. PO SCH (08:58)
[2016-05-15] MEDS: CEFPODOXIME PROXETIL 100 MG TABLET PO SCH ×2 (08:58→18:55)
[2016-05-15] MEDS: busPIRone 5 MG TABLET. PO SCH ×2 (08:58→18:55)
[2016-05-15] MEDS: CHOLECALCIFEROL (VITAMIN D3) 1,000 UNIT TABLET PO SCH (08:59)
[2016-05-15] MEDS: ARIPIPRAZOLE 5 MG TABLET PO SCH (08:59)
[2016-05-15] MEDS: SERTRALINE 100 MG TABLET. PO SCH (08:59)
[2016-05-15] MEDS: ACETAMINOPHEN 325 MG TABLET PO SCH ×2 (08:59→19:00)
[2016-05-15] MEDS: ASPIRIN 325 MG TABLET PO SCH (09:00)
[2016-05-15] MEDS: AMLODIPINE BESYLATE 5 MG TABLET PO SCH ×2 (09:00→18:59)
[2016-05-15] MEDS: PREGABALIN 50 MG CAPSULE PO SCH ×3 (09:03→19:02)
[2016-05-15] MEDS: POLYVINYL ALCOHOL 1.4% OPHTH SOLUTION 15ML BOTTLE. OU SCH ×2 (09:03→19:00)
[2016-05-15] MEDS: BRIMONIDINE 0.2% OPHTH SOLUTION 5ML BOTTLE. OU SCH ×2 (09:03→19:00)
--- NOTE | 2016-05-15 10:38 | NUR ---
Behavior Intervention Response and Plan: BIRP Note: Behavior: Assumed Care of patient, patient located in Day Room at shift change. Patient exhibited the following behavior Calm, Interactive, Compliant. Brief assessment on rounds of vital signs, medication needs, lab studies, and pain. Treatment plan problems . Intervention: Patient assessed and the following interventions initiated safety checks 15 Minute Checks Head to toe Assessment , Cognitive Assessment , Medications. Response: After interactions and interventions patient responded in the following manner, Able to Focus on Task , Calm ,Cooperative. Continue to assess behaviors and condition will continue to monitor throughout the shift as needed. 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 Continue to assess patient for changes in above assessment. Monitor for medication needs, pain, and safety concerns. Hourly rounding performed to ensure safe environment.
--- NOTE | 2016-05-15 14:00 | NUR ---
THERAPEUTIC RECREATION GROUP NOTE TITLE :Dance and sing along with [place]us ACTIVITY : Music GOAL : Increase socialization, elevate mood, stimulate memory DURATION : 60 minutes RESPONSE : Full participation most of the entire session. Pt. started the session sleeping but joined after a few songs and followed along with helga sheet and sang softly.
[2016-05-15 16:01] VITALS: BP 146/73
[2016-05-15] MEDS: DIVALPROEX ER 500 MG TAB.ER.24H PO SCH (18:55)
[2016-05-15] MEDS: DIVALPROEX ER 250 MG TAB.ER.24H. PO SCH (18:59)
[2016-05-15] MEDS: PRENATAL MULTIVITAMIN TABLET. PO SCH (19:05)
--- NOTE | 2016-05-15 21:15 | PDOC ---
Exam Chester Demential Exam: [place] Note: Please also refer to the separate dictated note~for this date of service dictated separately.~Patient seen individually. Discussed the patient with Nursing staff reviewed the chart.~Reviewed interim history and current functioning. Reviewed vital signs,~Labs/ Radiology~and current medications noted below. Continue current treatment with the changes noted in the dictated addendum note Assessment: Vital Signs: Vital Signs Date Time Temp Pulse Resp B/P Pulse Ox O2 Delivery O2 Flow Rate FiO2 05/15/16 20:32 96 Room Air 05/15/16 18:59 63 146/73 05/15/16 16:01 97.1 18 I&O Intake and Output 05/15/16 07:00 Intake Total 1080 ml Balance 1080 ml Intake Oral 1080 ml # Bowel Movements 1 Labs: Laboratory Tests Test 05/15/16 06:34 05/15/16 07:24 Sodium Level 144mmol/L (136-145) Potassium Level 4.9mmol/L (3.5-5.1) Chloride Level 109mmol/L (98-107) H Carbon Dioxide Level 28mmol/L (21-32) Anion Gap 7 (6-14) Blood Urea Nitrogen 31mg/dL (7-20) H Creatinine 1.5mg/dL (0.6-1.0) H Estimated GFR (Cockcroft-Gault) 33.3 Glucose Level 107mg/dL (70-99) H Calcium Level 9.2mg/dL (8.5-10.1) Cortisol AM Sample 8.4ug/dL (6.2-19.4) Valproic Acid Level 41mcg/mL (50-100) L Valproic Acid Last Dose Date 05/14/2016 Valproic Acid Last Dose Time 2100 Glucose (Fingerstick) 105mg/dL (70-99) H Current Medications: Meds: Current Medications Aripiprazole (Abilify) 5 mg DAILY PO Last administered on 05/15/16 08:59; Start 05/09/16 at 09:00 Divalproex Sodium (Depakote Er) 500 mg HS PO Last administered on 05/09/16 19: 20; Start 05/08/16 at 22:00; Stop 05/10/16 at 10:35; Status DC Sertraline HCl (Zoloft) 200 mg DAILY PO Last administered on 05/15/16 08:59; Start 05/09/16 at 09:00 Buspirone HCl (Buspar) 5 mg BID PO Last administered on 05/15/16 18:55; Start 05/08/16 at 22:00 Acetaminophen (Tylenol) 650 mg PRN Q6HRS PRN PO PAIN / TEMP; Start 05/08/16 at 22:30; Stop 05/09/16 at 05:59; Status DC Multi-Ingredient Ointment (Analgesic [place]) 1 tang PRN QID PRN TP MUSCLE PAIN; Start 05/08/16 at 22:30 Al Hydroxide/Mg Hydroxide (Mylanta Plus Xs) 15 ml PRN AFTMEALHC PRN PO DYSPEPSIA; Start 05/08/16 at 22:30 Magnesium Hydroxide (Milk Of Magnesia) 2,400 mg PRN QHS PRN PO CONSTIPATION; Start 05/08/16 at 22:30; Stop 05/09/16 at 05:59; Status DC Acetaminophen (Tylenol) 650 mg BID PO Last administered on 05/15/16 19:00; Start 05/09/16 at 09:00 Acetaminophen (Tylenol) 650 mg PRN Q6HRS PRN PO MILD PAIN / TEMP; Start at 06:00 Amlodipine Besylate (Norvasc) 5 mg BID PO Last administered on 05/15/16 18:59 ; Start 05/09/16 at 09:00 Aspirin (Bronson Aspirin) 325 mg DAILY08 PO Last administered on 05/15/16 09:00 ; Start 05/09/16 at 08:00 Bisacodyl (Dulcolax Tab) 10 mg PRN DAILY PRN PO CONSTIPATION; Start 05/09/16 at 06:00 Budesonide (Pulmicort) 0.5 mg PRN BID PRN NEB wheezing; Start 05/09/16 at 06:00 Vitamin D (Vitamin D3) 5,000 unit DAILY PO Last administered on 05/15/16 08:59 ; Start 05/09/16 at 09:00 Famotidine (Pepcid) 20 mg DAILY PO Last administered on 05/15/16 08:58; Start 05/09/16 at 09:00 Albuterol/ Ipratropium (Duoneb) 3 ml RTQID NEB Last administered on 05/15/16 20:32; Start 05/09/16 at 08:00 Isosorbide Mononitrate (Imdur) 30 mg DAILY PO Last administered on 05/15/16 08 :58; Start 05/09/16 at 09:00 Levothyroxine Sodium (Synthroid) 25 mcg DAILY07 PO Last administered on 06:02; Start 05/09/16 at 07:00 Magnesium Hydroxide (Milk Of Magnesia) 2,400 mg PRN DAILY PRN PO CONSTIPATION Last administered on 05/14/16 08:33; Start 05/09/16 at 06:00 Artificial Tears (Artificial Tears) 1 drop BID OU Last administered on 19:00; Start 05/09/16 at 09:00 Pregabalin (Lyrica) 50 mg TID PO Last administered on 05/15/16 19:02; Start at 09:00 Trolamine Salicylate (Myoplex) 1 tang PRN QID PRN TP MUSCLE PAIN; Start at 06:00 Brimonidine Tartrate (Alphagan) 1 drop BID OU Last administered on 05/15/16 19 :00; Start 05/09/16 at 09:00 Cefpodoxime Proxetil (Vantin) 200 mg BID PO ; Start 05/09/16 at 09:00; Stop at 09:00; Status DC Fish Oil (Fish Oil) 1,000 mg DAILY PO Last administered on 05/15/16 08:58; Start 05/09/16 at 09:00 Non-Formulary Medication 1 drop BID OU Glaucoma; Start 05/09/16 at 09:00; Status UNV Cefpodoxime Proxetil (Vantin) 200 mg BID PO Last administered on 05/15/16 18: 55; Start 05/09/16 at 09:00 Cyanocobalamin (Vitamin B-12) 1,000 mcg 1X ONCE IM Last administered on 17:14; Start 05/09/16 at 15:10; Stop 05/09/16 at 15:11; Status DC Prenat Multivit/ Weber/Iron/Folic Ac (Multivitamin ) 1 tab DAILYBFRSUP PO Last administered on 05/15/16 19:05; Start 05/09/16 at 17:00 Divalproex Sodium (Depakote Er) 750 mg QHS PO Last administered on 05/12/16 20 :04; Start 05/10/16 at 21:00; Stop 05/13/16 at 15:55; Status DC Divalproex Sodium (Depakote Er) 1,000 mg QHS PO Last administered on 05/13/16 20:03; Start 05/13/16 at 21:00; Stop 05/14/16 at 13:14; Status DC Divalproex Sodium (Depakote Er) 250 mg HS PO Last administered on 05/15/16 18: 59; Start 05/14/16 at 21:00 Divalproex Sodium (Depakote Er) 1,000 mg QHS PO Last administered on 05/15/16 18:55; Start 05/14/16 at 21:00 Sodium Polystyrene Sulfonate (Kayexalate) 15 gm 1X ONCE PO Last administered on 05/14/16 17:52; Start 05/14/16 at 17:15; Stop 05/14/16 at 17:16; Status DC Lactulose 30 gm PRN BID PRN PO CONSTIPATION; Start 05/14/16 at 17:00; Stop at 17:10; Status DC Lactulose 30 gm BID PO Last administered on 05/14/16 20:50; Start 05/14/16 at 17:30; Stop 05/14/16 at 21:01; Status DC Active Scripts Active Reported Nitrostat (Nitroglycerin) 0.4 Mg Tab.subl 0.4 Mg SL PRN Q3MIN PRN Milk Of Magnesia (Magnesium Hydroxide) 400 Mg/5 Ml Oral.susp 30 Ml PO PRN DAILY PRN Systane 0.3-0.4% Eye Drops (Propylene Glycol/Peg 400/Pf) 1 Each Droperette 1 Drop OU BID Duoneb 0.5-3(2.5) Mg/3 Ml (Albuterol/Ipratropium) 3 Ml Ampul.neb 3 Ml NEB QID Cefuroxime (Cefuroxime Axetil) 250 Mg Tablet 250 Mg PO BID 10 Days Buspirone Hcl 5 Mg Tablet 5 Mg PO BID Artificial Tears (Polyvinyl Alcohol) 15 Ml Drops 1 Drp OP BID Famotidine 20 Mg Tablet 1 Tab PO BID Analgesic Creme (Trolamine Salicylate) 86 Gm Cream..g. 1 Tang TP PRN QID PRN Bisacodyl 10 Mg Supp.rect 10 Mg RC PRN DAILY PRN FOR CONSTIPATION NOT RELIEVED BY MILK OF MAG/MIRALAX/BISACODYL ORAL Bisacodyl 5 Mg Tablet.dr 10 Mg PO PRN DAILY PRN FOR CONSTIPATION NOT RELIEVED BY MILK OF MAGNESIA OR MIRALAX Tylenol (Acetaminophen) 325 Mg Tablet 650 Mg PO PRN Q6HRS PRN Lyrica (Pregabalin) 50 Mg Capsule 50 Mg PO TID Abilify (Aripiprazole) 5 Mg Tablet 5 Mg PO DAILY Vitamin D3 (Cholecalciferol (Vitamin D3)) 1,000 Unit Tablet 5,000 Unit PO DAILY Tylenol (Acetaminophen) 325 Mg Tablet 650 Mg PO BID Zoloft (Sertraline Hcl) 100 Mg Tablet 200 Mg PO DAILY Levothyroxine Sodium 50 Mcg Tablet 25 Mcg PO DAILY06 Isosorbide Mononitrate Er (Isosorbide Mononitrate) 30 Mg Tab.er.24h 30 Mg PO DAILY [place] 3 Fish Oil Softgel ([place]-3 Fatty Acids/Fish Oil) 1 Each Capsule.dr 1,000 Mg PO DAILY Depakote Er (Divalproex Sodium) 500 Mg Tab.er.24h 500 Mg PO HS Budesonide 0.5 Mg/2 Ml Ampul.neb 1 Vial NEB PRN BID PRN Alphagan P (Brimonidine Tartrate) 5 Ml Drops 1 Drop EACHEYE BID Aspirin 325 Mg Tablet 325 Mg PO DAILY08 Amlodipine Besylate 5 Mg Tablet 5 Mg PO BID Diagnosis: Problems: (1) Depression (2) Bipolar affective, mixed, sev w/ psych (3) Anxiety disorder (4) Impulse control disorder (5) Major depressive disorder, recurrent episode FAUSTO GREGORY MD May 15, 2016 21:15
--- NOTE | 2016-05-15 22:25 | PN ---
DATE: 05/14/2016 This is a late entry for 05/14/2016 covers elements not covered in my initial note. SUBJECTIVE: Overall, the patient remains pleasant, cooperative, not aggressive. REVIEW OF SYSTEMS: Ambulation impaired, in her wheelchair. No CV, , Pulmonary, eye, ENT system symptoms on review. MENTAL STATUS EXAM: Reasonably oriented. Speech coherent, pleasant, verbal, smiling with me. Abstraction fair, computation impaired, language function intact. Mood and affect is improved. LABORATORY DATA: Reviewed. IMPRESSION: Bipolar 1 disorder, unspecified, possible cyclothymic disorder; anxiety disorder, unspecified. Rest diagnoses unchanged. PLAN: Maintain current psychotropics. Adjust further as clinically indicated. MAN Marcela GREGORY MD DR: LUBNA/bryant JOB#: [id number] / [id number]
[2016-05-16] MEDS: LEVOTHYROXINE 25 MCG TABLET. PO SCH (05:53)
--- NOTE | 2016-05-16 06:06 | NUR ---
Behavior Intervention Response and Plan: BIRP Note: Behavior: Assumed Care of patient, patient located in Day Room at shift change. Patient exhibited the following behavior Calm, Interactive, Social. Brief assessment on rounds of vital signs, medication needs, lab studies, and pain. Treatment plan problems 1-2. Intervention: Patient assessed and the following interventions initiated safety checks 15 Minute Checks Cognitive Assessment , Head to toe Assessment , Medications. Response: After interactions and interventions patient responded in the following manner, Calm , Interactive ,Social. Continue to assess behaviors and condition will continue to monitor throughout the shift as needed. 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 Continue to assess patient for changes in above assessment. Monitor for medication needs, pain, and safety concerns. Hourly rounding performed to ensure safe environment.
[2016-05-16] MEDS: IPRATRPIUM/ALBUTEROL 0.5/2.5MG 3 ML NEBU. NEB SCH ×4 (06:21→20:00)
[2016-05-16 06:46] VITALS: BP 162/83
[2016-05-16 07:12] LABS: HEMATOCRIT 31.3 % (36.0-47.0); HEMOGLOBIN 10.3 g/dL (12.0-15.5); RED BLOOD COUNT 3.51 x10^6/uL (3.50-5.40); RED CELL DISTRIBUTION WIDTH 15.1 % (11.5-14.5); WHITE BLOOD COUNT 3.4 x10^3/uL (4.0-11.0)
[2016-05-16 07:32] LABS: ALBUMIN 2.9 g/dL (3.4-5.0); ALBUMIN/GLOBULIN RATIO 0.8 (1.0-1.7); CALCIUM 9.2 mg/dL (8.5-10.1); CREATININE 1.4 mg/dL (0.6-1.0); GFR 36.1; POTASSIUM 4.8 mmol/L (3.5-5.1); TOTAL BILIRUBIN 0.2 mg/dL (0.2-1.0); TOTAL PROTEIN 6.4 g/dL (6.4-8.2)
[2016-05-16] MEDS: BRIMONIDINE 0.2% OPHTH SOLUTION 5ML BOTTLE. OU SCH ×2 (09:19→21:00)
[2016-05-16] MEDS: POLYVINYL ALCOHOL 1.4% OPHTH SOLUTION 15ML BOTTLE. OU SCH ×2 (09:19→21:00)
[2016-05-16] MEDS: ASPIRIN 325 MG TABLET PO SCH (09:19)
[2016-05-16] MEDS: PREGABALIN 50 MG CAPSULE PO SCH ×3 (09:19→19:44)
[2016-05-16] MEDS: CHOLECALCIFEROL (VITAMIN D3) 1,000 UNIT TABLET PO SCH (09:19)
[2016-05-16] MEDS: busPIRone 5 MG TABLET. PO SCH ×2 (09:19→19:41)
[2016-05-16] MEDS: ISOSORBIDE MONONITRATE ER 30 MG TAB.ER.24H PO SCH (09:20)
[2016-05-16] MEDS: CEFPODOXIME PROXETIL 100 MG TABLET PO SCH ×2 (09:20→19:42)
[2016-05-16] MEDS: FAMOTIDINE 20 MG TABLET PO SCH (09:20)
[2016-05-16] MEDS: OMEGA-3 FATTY ACIDS/FISH OIL 1,000 MG CAPSULE. PO SCH (09:20)
[2016-05-16] MEDS: ARIPIPRAZOLE 5 MG TABLET PO SCH (09:20)
[2016-05-16] MEDS: ACETAMINOPHEN 325 MG TABLET PO SCH ×2 (09:20→19:44)
[2016-05-16] MEDS: SERTRALINE 100 MG TABLET. PO SCH (09:21)
[2016-05-16] MEDS: AMLODIPINE BESYLATE 5 MG TABLET PO SCH ×2 (09:21→19:41)
--- NOTE | 2016-05-16 10:16 | NUR ---
Patient has left sided pitting edema 3+ to left leg and left arm, hand, and left orbital area. She also has raised blisters to left posterior forearm and left eye lid. order desk caller physician paged and made aware. He plans to see the patient today. Vital signs stable and she denies pain at this time. We will continue on 15 minute safety checks.
--- NOTE | 2016-05-16 10:37 | NUR ---
SW spoke with pt facility regarding pt., pt had been at [facility] for awhile. Pt family asked if pt could transition back to the facility as she was doing much better. Pt facility agreed to this. Pt facility reports she was only back for a short time then was sent out to [facility] due to increased behaviors. Facility states they are hoping to find new placement for her as they do not feel they are able to meet her mental health needs. This signwriter will assist in locating new placement. SW will reach out to [facility] once level II is completed.
--- NOTE | 2016-05-16 11:00 | NUR ---
Behavior Intervention Response and Plan: BIRP Note: Behavior: Assumed Care of patient, patient located in Day Room at shift change. Patient exhibited the following behavior Calm, Cooperative, Able to Focus on Task. Brief assessment on rounds of vital signs, medication needs, lab studies, and pain. Treatment plan problems . Intervention: Patient assessed and the following interventions initiated safety checks 15 Minute Checks Medications , Head to toe Assessment , ADL's. Response: After interactions and interventions patient responded in the following manner, Calm , Compliant ,Drowsy. Continue to assess behaviors and condition will continue to monitor throughout the shift as needed. Plan: Continue to monitor Master Treatment Plan for patient's progress toward short term goals of No harm To self/ others, Decreased Aggression, chcf goals to return to previous living setting vs placement. Continue to assess patient for changes in above assessment. Monitor for medication needs, pain, and safety concerns. Hourly rounding performed to ensure safe environment.
--- NOTE | 2016-05-16 14:38 | NUR ---
Notified pharmacy of consult from Dr Molina to see if any medications would cause her left sided edema. Sarah from pharmacy advised she would review.
--- NOTE | 2016-05-16 15:15 | NUR ---
THERAPEUTIC RECREATION GROUP NOTE TITLE :[place] ACTIVITY : Activities and Games GOAL : Maintain and improve mental and physical functioning, increase socialization and moral DURATION : 60 Minutes RESPONSE : Full participation. Pt. waited her turn patiently and was helpful to others. She was able to catch the ball when tossed to her.
--- NOTE | 2016-05-16 15:41 | NUR ---
Sarah from pharmacy advised had no advisable medication interactions or side effects that would cause left sided edema or fluid-filled blisters. Rashes from medications usually do not present in this fashion and would usually be bilateral. MARY Conti notified.
[2016-05-16 16:20] VITALS: BP 148/61
[2016-05-16] MEDS: PRENATAL MULTIVITAMIN TABLET. PO SCH (17:34)
[2016-05-16] MEDS: DIVALPROEX ER 500 MG TAB.ER.24H PO SCH (19:41)
[2016-05-16] MEDS: DIVALPROEX ER 250 MG TAB.ER.24H. PO SCH (19:41)
--- NOTE | 2016-05-16 22:27 | NUR ---
Nsg Note: ultrasound staff here to complete ultrasound of left side, pt refusing to turn over for the procedure, per pt" idf you can't get it this way then forget it, get out, i'm not turning over any further" pt encouraged to cooperate for procedure, with much encouragement, pt slightly turned over a little more, will continue to monitor.
--- NOTE | 2016-05-16 23:09 | NUR ---
Behavior Intervention Response and Plan: BIRP Note: Behavior: Assumed Care of patient, patient located in Day Room at shift change. Patient exhibited the following behavior Calm, Interactive, Social. Brief assessment on rounds of vital signs, medication needs, lab studies, and pain. Treatment plan problems mood d/o. Intervention: Patient assessed and the following interventions initiated safety checks 15 Minute Checks Cognitive Assessment , Head to toe Assessment , Medications. Response: After interactions and interventions patient responded in the following manner, Able to Focus on Task , Interactive ,Social. Continue to assess behaviors and condition will continue to monitor throughout the shift as needed. Plan: Continue to monitor Master Treatment Plan for patient's progress toward short term goals of No harm To self/ others, Medication Compliance, alf goals to return to previous living setting vs placement. Continue to assess patient for changes in above assessment. Monitor for medication needs, pain, and safety concerns. Hourly rounding performed to ensure safe environment.
--- NOTE | 2016-05-16 23:32 | RAD ---
Examination: Ultrasound left upper extremity venous duplex History: History of left arm swelling. COMPARISON None available. TECHNIQUE Grayscale, color Doppler 2D, spectral waveform analysis of the left upper extremity venous system were performed. Findings: The visualized internal jugular vein, subclavian vein, axillary vein, brachial vein, basilic vein, radial, ulnar, cephalic veins are patent. IMPRESSION No evidence of deep venous thrombosis identified in the left upper extremity venous system. Electronically signed by: Byron Lei (May 16, 2016 23:30:46)
--- NOTE | 2016-05-17 02:35 | PN ---
DATE: 05/15/2016 PSYCHIATRIC PROGRESS NOTE This is a late entry for 05/15/2016, covers elements not covered in my initial note. SUBJECTIVE: Overall, the patient has been fairly cooperative on the unit, gets a little anxious, redirects. She is very pleasant, verbal, smiling as I met with her. I again discussed circumstances prompting admission including crying hysterically, taking things apart, talking about dying and she minimized, denied any knowledge of this. REVIEW OF SYSTEMS: Ambulation impaired, in her wheelchair. No CV, , pulmonary, eye, ENT system symptoms on review. MENTAL STATUS EXAM: Reasonably oriented. Speech coherent, pleasant, smiling. Abstraction fair, computation impaired, language function intact. Mood and affect appears improved. LABORATORY DATA: Reviewed. IMPRESSION: Bipolar 1 disorder, mixed versus depressed, in partial remission; anxiety disorder, unspecified. Rest diagnosis unchanged. PLAN: Continue psychotropics mentioned in my initial note. Adjust further as clinically indicated. FAUSTO GREGORY MD DR: LUBNA/bryant JOB#: [id number] / [id number]
[2016-05-17] MEDS: IPRATRPIUM/ALBUTEROL 0.5/2.5MG 3 ML NEBU. NEB SCH ×4 (04:33→20:00)
[2016-05-17 06:20] VITALS: BP 152/68
[2016-05-17] MEDS: LEVOTHYROXINE 25 MCG TABLET. PO SCH (06:33)
--- NOTE | 2016-05-17 06:33 | NUR ---
Nsg Note: pt slept well all shift.
[2016-05-17 07:37] LABS: BASO % 1 % (0-3); EOS # 0.1 x10^3/uL (0.0-0.7); EOS % 2 % (0-3); HEMATOCRIT 34.3 % (36.0-47.0); HEMOGLOBIN 11.2 g/dL (12.0-15.5); LYMPH # 1.2 x10^3/uL (1.0-4.8); LYMPH % 34 % (24-48); MEAN CORPUSCULAR HEMOGLOBIN 29 pg (25-35); MEAN CORPUSCULAR HGB CONC 33 g/dL (31-37); MEAN CORPUSCULAR VOLUME 90 fL (79-100); MONO # 0.3 x10^3/uL (0.0-1.1); MONO % 8 % (0-9); NEUT % 55 % (31-73); PLATELET COUNT 88 x10^3/uL (140-400); RED BLOOD COUNT 3.81 x10^6/uL (3.50-5.40); WHITE BLOOD COUNT 3.6 x10^3/uL (4.0-11.0)
[2016-05-17 07:50] LABS: ALBUMIN 3.2 g/dL (3.4-5.0); ALBUMIN/GLOBULIN RATIO 0.8 (1.0-1.7); CALCIUM 9.5 mg/dL (8.5-10.1); CREATININE 1.5 mg/dL (0.6-1.0); GFR 33.3; POTASSIUM 4.5 mmol/L (3.5-5.1); TOTAL BILIRUBIN 0.2 mg/dL (0.2-1.0); TOTAL PROTEIN 7.1 g/dL (6.4-8.2)
[2016-05-17 07:52] LABS: VAL ACID 51 mcg/mL (50-100)
[2016-05-17] MEDS: OMEGA-3 FATTY ACIDS/FISH OIL 1,000 MG CAPSULE. PO SCH (09:08)
[2016-05-17] MEDS: CEFPODOXIME PROXETIL 100 MG TABLET PO SCH ×2 (09:08→19:30)
[2016-05-17] MEDS: SERTRALINE 100 MG TABLET. PO SCH (09:08)
[2016-05-17] MEDS: FAMOTIDINE 20 MG TABLET PO SCH (09:09)
[2016-05-17] MEDS: AMLODIPINE BESYLATE 5 MG TABLET PO SCH ×2 (09:09→19:30)
[2016-05-17] MEDS: PREGABALIN 50 MG CAPSULE PO SCH ×3 (09:09→19:35)
[2016-05-17] MEDS: busPIRone 5 MG TABLET. PO SCH ×2 (09:09→19:30)
[2016-05-17] MEDS: ACETAMINOPHEN 325 MG TABLET PO SCH ×2 (09:10→19:30)
[2016-05-17] MEDS: ISOSORBIDE MONONITRATE ER 30 MG TAB.ER.24H PO SCH (09:10)
[2016-05-17] MEDS: ARIPIPRAZOLE 5 MG TABLET PO SCH (09:10)
[2016-05-17] MEDS: CHOLECALCIFEROL (VITAMIN D3) 1,000 UNIT TABLET PO SCH (09:11)
[2016-05-17] MEDS: ASPIRIN 325 MG TABLET PO SCH (09:11)
[2016-05-17] MEDS: BRIMONIDINE 0.2% OPHTH SOLUTION 5ML BOTTLE. OU SCH ×2 (09:13→19:32)
[2016-05-17] MEDS: POLYVINYL ALCOHOL 1.4% OPHTH SOLUTION 15ML BOTTLE. OU SCH ×2 (09:13→19:32)
--- NOTE | 2016-05-17 10:35 | NUR ---
Behavior Intervention Response and Plan: BIRP Note: Behavior: Assumed Care of patient, patient located in Patient Room at shift change. Patient exhibited the following behavior Calm, Disorganized, Interactive. Brief assessment on rounds of vital signs, medication needs, lab studies, and pain. Treatment plan problems . Intervention: Patient assessed and the following interventions initiated safety checks 15 Minute Checks Head to toe Assessment , Medications , Oral Hydration. Response: After interactions and interventions patient responded in the following manner, Calm , Interactive ,Wandering. Continue to assess behaviors and condition will continue to monitor throughout the shift as needed. 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 Continue to assess patient for changes in above assessment. Monitor for medication needs, pain, and safety concerns. Hourly rounding performed to ensure safe environment.
--- NOTE | 2016-05-17 10:39 | NUR ---
THERAPEUTIC RECREATION GROUP NOTE TITLE :[place] ACTIVITY : Activities and Games GOAL : Maintain and improve mental and physical functioning, increase socialization and moral DURATION : 45 Minutes RESPONSE : Full participation. Pt. was excited about playing and reminisced about her old [employer] league. Addendum: 05/17/16 at 1040 by SCARLET VALENZUELA ACT This activity took place on 05/16/2016 at 10:45. RAMAN
--- NOTE | 2016-05-17 13:30 | NUR ---
ONEAL spoke with [facility] per [facility] request as pt had been there prior. [facility] would accept pt., however dtr is refusing to allow her mother to go back to [facility]. ONEAL then Called [facility] and spoke with Dalila NO and explained family will not allow discharge to [facility]. ONEAL faxed over current notes to [facility], Dalila will seek out other placement if not pt will return to [facility] possibly on Saturday. Dalila is to call this handbook writer when a decision has been made.
--- NOTE | 2016-05-17 14:00 | NUR ---
THERAPEUTIC RECREATION GROUP NOTE TITLE :What's in the Box? ACTIVITY : Activities and Games GOAL : Increase attention/ concentration and sensory stimulation. DURATION : 45 Minutes RESPONSE : Full participation. Pt. waited her turn patiently and was able to guess items correctly with minimal prompting.
--- NOTE | 2016-05-17 14:54 | NUR ---
Case Management Note Referral documents sent to [facility] [place] [facility] for potential admission to [phone]. Will continue to follow for continued stay and discharge planning needs.
--- NOTE | 2016-05-17 15:37 | NUR ---
Lexie Hartmann came to see pt., ONEAL faxed over referral packet and waiting call from admissions if able to take pt.
[2016-05-17 16:26] VITALS: BP 167/71
[2016-05-17] MEDS: PRENATAL MULTIVITAMIN TABLET. PO SCH (16:31)
[2016-05-17] MEDS: DIVALPROEX ER 250 MG TAB.ER.24H. PO SCH (19:29)
[2016-05-17] MEDS: DIVALPROEX ER 500 MG TAB.ER.24H PO SCH (19:29)
[2016-05-17] MEDS ORDERED: DIVA250T PO (23:44)
[2016-05-17] MEDS ORDERED: MAG30ORA2 PO (23:48)
[2016-05-17] MEDS ORDERED: METH29OI TP (23:49)
[2016-05-17] MEDS ORDERED: PNV1TABL78 PO (23:51)
--- NOTE | 2016-05-18 04:55 | NUR ---
Behavior Intervention Response and Plan: BIRP Note: Behavior: Assumed Care of patient, patient located in Day Room at shift change. Patient exhibited the following behavior Calm, Interactive, Compliant. Brief assessment on rounds of vital signs, medication needs, lab studies, and pain. Treatment plan problems 1-2. Intervention: Patient assessed and the following interventions initiated safety checks 15 Minute Checks Cognitive Assessment , Medications , Head to toe Assessment. Response: After interactions and interventions patient responded in the following manner, Calm , Interactive ,Social. Continue to assess behaviors and condition will continue to monitor throughout the shift as needed. Plan: Continue to monitor Master Treatment Plan for patient's progress toward short term goals of Improved Mood, Decreased Agitation, mcc goals to return to previous living setting vs placement. Continue to assess patient for changes in above assessment. Monitor for medication needs, pain, and safety concerns. Hourly rounding performed to ensure safe environment.
[2016-05-18] MEDS: IPRATRPIUM/ALBUTEROL 0.5/2.5MG 3 ML NEBU. NEB SCH ×3 (05:23→16:15)
[2016-05-18] MEDS: LEVOTHYROXINE 25 MCG TABLET. PO SCH (05:54)
[2016-05-18 05:56] VITALS: BP 147/63
[2016-05-18] MEDS: CEFPODOXIME PROXETIL 100 MG TABLET PO SCH (09:06)
[2016-05-18] MEDS: PREGABALIN 50 MG CAPSULE PO SCH ×2 (09:06→13:33)
[2016-05-18] MEDS: FAMOTIDINE 20 MG TABLET PO SCH (09:06)
[2016-05-18] MEDS: OMEGA-3 FATTY ACIDS/FISH OIL 1,000 MG CAPSULE. PO SCH (09:06)
[2016-05-18] MEDS: SERTRALINE 100 MG TABLET. PO SCH (09:06)
[2016-05-18] MEDS: ISOSORBIDE MONONITRATE ER 30 MG TAB.ER.24H PO SCH (09:06)
[2016-05-18] MEDS: ACETAMINOPHEN 325 MG TABLET PO SCH (09:06)
[2016-05-18] MEDS: busPIRone 5 MG TABLET. PO SCH (09:07)
[2016-05-18] MEDS: CHOLECALCIFEROL (VITAMIN D3) 1,000 UNIT TABLET PO SCH (09:07)
[2016-05-18] MEDS: ARIPIPRAZOLE 5 MG TABLET PO SCH (09:07)
[2016-05-18] MEDS: AMLODIPINE BESYLATE 5 MG TABLET PO SCH (09:07)
[2016-05-18] MEDS: ASPIRIN 325 MG TABLET PO SCH (09:07)
[2016-05-18] MEDS: POLYVINYL ALCOHOL 1.4% OPHTH SOLUTION 15ML BOTTLE. OU SCH (09:08)
[2016-05-18] MEDS: BRIMONIDINE 0.2% OPHTH SOLUTION 5ML BOTTLE. OU SCH (09:08)
[2016-05-18] MEDS: MAGNESIUM HYDROXIDE 2,400 MG/30 ML ORAL.SUSP. PO PRN (09:15)
--- NOTE | 2016-05-18 09:15 | NUR ---
Patient c/o constipation, states she has been trying all AM to have a bowel movement. PRN MOM given, will continue to monitor.
--- NOTE | 2016-05-18 09:23 | PDOC ---
Exam [place] Demential Exam: [place] Note: Please also refer to the separate dictated note~for this date of service dictated separately.~Patient seen individually. Discussed the patient with Nursing staff reviewed the chart.~Reviewed interim history and current functioning. Reviewed vital signs,~Labs/ Radiology~and current medications noted below. Continue current treatment with the changes noted in the dictated addendum note Assessment: Vital Signs: Vital Signs Date Time Temp Pulse Resp B/P Pulse Ox O2 Delivery O2 Flow Rate FiO2 05/18/16 09:07 57 147/63 05/18/16 05:56 97.5 17 93 05/18/16 05:24 Room Air I&O Intake and Output 05/18/16 07:00 Intake Total 960 ml Balance 960 ml Intake Oral 960 ml Labs: Laboratory Tests Test 05/18/16 07:45 Glucose (Fingerstick) 91mg/dL (70-99) Current Medications: Meds: Current Medications Aripiprazole (Abilify) 5 mg DAILY PO Last administered on 05/18/16 09:07; Start 05/09/16 at 09:00 Divalproex Sodium (Depakote Er) 500 mg HS PO Last administered on 05/09/16 19: 20; Start 05/08/16 at 22:00; Stop 05/10/16 at 10:35; Status DC Sertraline HCl (Zoloft) 200 mg DAILY PO Last administered on 05/18/16 09:06; Start 05/09/16 at 09:00 Buspirone HCl (Buspar) 5 mg BID PO Last administered on 05/18/16 09:07; Start 05/08/16 at 22:00 Acetaminophen (Tylenol) 650 mg PRN Q6HRS PRN PO PAIN / TEMP; Start 05/08/16 at 22:30; Stop 05/09/16 at 05:59; Status DC Multi-Ingredient Ointment (Analgesic Callahan) 1 tang PRN QID PRN TP MUSCLE PAIN; Start 05/08/16 at 22:30 Al Hydroxide/Mg Hydroxide (Mylanta Plus Xs) 15 ml PRN AFTMEALHC PRN PO DYSPEPSIA; Start 05/08/16 at 22:30 Magnesium Hydroxide (Milk Of Magnesia) 2,400 mg PRN QHS PRN PO CONSTIPATION; Start 05/08/16 at 22:30; Stop 05/09/16 at 05:59; Status DC Acetaminophen (Tylenol) 650 mg BID PO Last administered on 05/18/16 09:06; Start 05/09/16 at 09:00 Acetaminophen (Tylenol) 650 mg PRN Q6HRS PRN PO MILD PAIN / TEMP; Start at 06:00 Amlodipine Besylate (Norvasc) 5 mg BID PO Last administered on 05/18/16 09:07 ; Start 05/09/16 at 09:00 Aspirin (Bronson Aspirin) 325 mg DAILY08 PO Last administered on 05/18/16 09:07 ; Start 05/09/16 at 08:00 Bisacodyl (Dulcolax Tab) 10 mg PRN DAILY PRN PO CONSTIPATION; Start 05/09/16 at 06:00 Budesonide (Pulmicort) 0.5 mg PRN BID PRN NEB wheezing; Start 05/09/16 at 06:00 Vitamin D (Vitamin D3) 5,000 unit DAILY PO Last administered on 05/18/16 09:07 ; Start 05/09/16 at 09:00 Famotidine (Pepcid) 20 mg DAILY PO Last administered on 05/18/16 09:06; Start 05/09/16 at 09:00 Albuterol/ Ipratropium (Duoneb) 3 ml RTQID NEB Last administered on 05/18/16 05:23; Start 05/09/16 at 08:00 Isosorbide Mononitrate (Imdur) 30 mg DAILY PO Last administered on 05/18/16 09 :06; Start 05/09/16 at 09:00 Levothyroxine Sodium (Synthroid) 25 mcg DAILY07 PO Last administered on 05:54; Start 05/09/16 at 07:00 Magnesium Hydroxide (Milk Of Magnesia) 2,400 mg PRN DAILY PRN PO CONSTIPATION Last administered on 05/18/16 09:15; Start 05/09/16 at 06:00 Artificial Tears (Artificial Tears) 1 drop BID OU Last administered on 09:08; Start 05/09/16 at 09:00 Pregabalin (Lyrica) 50 mg TID PO Last administered on 05/18/16 09:06; Start at 09:00 Trolamine Salicylate (Myoplex) 1 tang PRN QID PRN TP MUSCLE PAIN; Start at 06:00 Brimonidine Tartrate (Alphagan) 1 drop BID OU Last administered on 05/18/16 09 :08; Start 05/09/16 at 09:00 Cefpodoxime Proxetil (Vantin) 200 mg BID PO ; Start 05/09/16 at 09:00; Stop at 09:00; Status DC Fish Oil (Fish Oil) 1,000 mg DAILY PO Last administered on 05/18/16 09:06; Start 05/09/16 at 09:00 Non-Formulary Medication 1 drop BID OU Glaucoma; Start 05/09/16 at 09:00; Status UNV Cefpodoxime Proxetil (Vantin) 200 mg BID PO Last administered on 05/18/16 09: 06; Start 05/09/16 at 09:00 Cyanocobalamin (Vitamin B-12) 1,000 mcg 1X ONCE IM Last administered on 17:14; Start 05/09/16 at 15:10; Stop 05/09/16 at 15:11; Status DC Prenat Multivit/ Vp [employer]/Iron/Folic Ac (Multivitamin ) 1 tab DAILYBFRSUP PO Last administered on 05/17/16 16:31; Start 05/09/16 at 17:00 Divalproex Sodium (Depakote Er) 750 mg QHS PO Last administered on 05/12/16 20 :04; Start 05/10/16 at 21:00; Stop 05/13/16 at 15:55; Status DC Divalproex Sodium (Depakote Er) 1,000 mg QHS PO Last administered on 05/13/16 20:03; Start 05/13/16 at 21:00; Stop 05/14/16 at 13:14; Status DC Divalproex Sodium (Depakote Er) 250 mg HS PO Last administered on 05/17/16 19: 29; Start 05/14/16 at 21:00 Divalproex Sodium (Depakote Er) 1,000 mg QHS PO Last administered on 05/17/16 19:29; Start 05/14/16 at 21:00 Sodium Polystyrene Sulfonate (Kayexalate) 15 gm 1X ONCE PO Last administered on 05/14/16 17:52; Start 05/14/16 at 17:15; Stop 05/14/16 at 17:16; Status DC Lactulose 30 gm PRN BID PRN PO CONSTIPATION; Start 05/14/16 at 17:00; Stop at 17:10; Status DC Lactulose 30 gm BID PO Last administered on 05/14/16t 20:50; Start 05/14/16 at 17:30; Stop 05/14/16 at 21:01; Status DC Active Scripts Active Reported Multi Tablet (Pnv No.122/Iron/Folic Acid) 1 Each Tablet 1 Tab PO DAILYBFRSUP Analgesic Callahan (Methyl Salicylate/Menthol) 29 Gm Oint...g. 1 Tang TP PRN QID PRN Mag-Al Plus Xs Suspension (Mag Hydrox/Al Hydrox/Simeth) 30 Ml Oral.susp 15 Ml PO PRN AFTMEALHC PRN Depakote Er (Divalproex Sodium) 250 Mg Tab.er.24h 250 Mg PO QHS Nitrostat (Nitroglycerin) 0.4 Mg Tab.subl 0.4 Mg SL PRN Q3MIN PRN Milk Of Magnesia (Magnesium Hydroxide) 400 Mg/5 Ml Oral.susp 30 Ml PO PRN DAILY PRN Systane 0.3-0.4% Eye Drops (Propylene Glycol/Peg 400/Pf) 1 Each Droperette 1 Drop OU BID Duoneb 0.5-3(2.5) Mg/3 Ml (Albuterol/Ipratropium) 3 Ml Ampul.neb 3 Ml NEB QID Cefuroxime (Cefuroxime Axetil) 250 Mg Tablet 250 Mg PO BID 10 Days Buspirone Hcl 5 Mg Tablet 5 Mg PO BID Artificial Tears (Polyvinyl Alcohol) 15 Ml Drops 1 Drp OP BID Famotidine 20 Mg Tablet 1 Tab PO BID Analgesic Creme (Trolamine Salicylate) 86 Gm Cream..g. 1 Tang TP PRN QID PRN Bisacodyl 10 Mg Supp.rect 10 Mg RC PRN DAILY PRN FOR CONSTIPATION NOT RELIEVED BY MILK OF MAG/MIRALAX/BISACODYL ORAL Bisacodyl 5 Mg Tablet.dr 10 Mg PO PRN DAILY PRN FOR CONSTIPATION NOT RELIEVED BY MILK OF MAGNESIA OR MIRALAX Tylenol (Acetaminophen) 325 Mg Tablet 650 Mg PO PRN Q6HRS PRN Lyrica (Pregabalin) 50 Mg Capsule 50 Mg PO TID Abilify (Aripiprazole) 5 Mg Tablet 5 Mg PO DAILY Vitamin D3 (Cholecalciferol (Vitamin D3)) 1,000 Unit Tablet 5,000 Unit PO DAILY Tylenol (Acetaminophen) 325 Mg Tablet 650 Mg PO BID Zoloft (Sertraline Hcl) 100 Mg Tablet 200 Mg PO DAILY Levothyroxine Sodium 50 Mcg Tablet 25 Mcg PO DAILY06 Isosorbide Mononitrate Er (Isosorbide Mononitrate) 30 Mg Tab.er.24h 30 Mg PO DAILY [place] 3 Fish Oil Softgel ([place]-3 Fatty Acids/Fish Oil) 1 Each Capsule.dr 1,000 Mg PO DAILY Depakote Er (Divalproex Sodium) 500 Mg Tab.er.24h 500 Mg PO HS Budesonide 0.5 Mg/2 Ml Ampul.neb 1 Vial NEB PRN BID PRN Alphagan P (Brimonidine Tartrate) 5 Ml Drops 1 Drop EACHEYE BID Aspirin 325 Mg Tablet 325 Mg PO DAILY08 Amlodipine Besylate 5 Mg Tablet 5 Mg PO BID Diagnosis: Problems: (1) Depression (2) Bipolar affective, mixed, sev w/ psych (3) Anxiety disorder (4) Impulse control disorder (5) Major depressive disorder, recurrent episode FAUSTO GREGORY MD May 18, 2016 09:23
--- NOTE | 2016-05-18 09:38 | NUR ---
[facility] called [facility] as [facility] was informed they would be calling this contract technical writer back with an answer, admissions is currently out. SW left contact information waiting to see if they are able to accept pt.
--- NOTE | 2016-05-18 10:42 | NUR ---
Behavior Intervention Response and Plan: BIRP Note: Behavior: Assumed Care of patient, patient located in Day Room at shift change. Patient exhibited the following behavior Calm, Interactive, Compliant. Brief assessment on rounds of vital signs, medication needs, lab studies, and pain. Treatment plan problems . Intervention: Patient assessed and the following interventions initiated safety checks 15 Minute Checks Cognitive Assessment , Head to toe Assessment , Medications. Response: After interactions and interventions patient responded in the following manner, Calm , Compliant ,Cooperative. Continue to assess behaviors and condition will continue to monitor throughout the shift as needed. Plan: Continue to monitor Master Treatment Plan for patient's progress toward short term goals of Decreased Anxiety, Improved Mood, inspector type goals to return to previous living setting vs placement. Continue to assess patient for changes in above assessment. Monitor for medication needs, pain, and safety concerns. Hourly rounding performed to ensure safe environment.
--- NOTE | 2016-05-18 11:00 | NUR ---
THERAPEUTIC RECREATION GROUP NOTE TITLE :Movement to Music with Weights and Pool Noodles ACTIVITY : Exercise and Movement GOAL : Increase social interaction, physical endurance, and morale DURATION : 60 Minutes RESPONSE : Full participation. Pt. needed minimal prompting. She matched movements and rhythm quickly and accurately.
--- NOTE | 2016-05-18 11:45 | NUR ---
SW had a call from [facility] updated notes faxed, hoping to be able to accept by afternoon. SW will follow up.
--- NOTE | 2016-05-18 16:04 | NUR ---
[facility] Social Work Discharge Planning Form Patient Name ABDON BOUDREAUX Admit Date: 04/10/16 DISCHARGE PLAN Discharge Destination: [place] Transportation: 4pm Special Instructions/Notes: DISCHARGE TO FACILITY Facility: [facility] [address] [place] [id number] Contact Name: Va GUERRA, Other: PCP: at facility Primary Care Follow Up 7-10days
[2016-05-18 16:18] VITALS: BP 149/85
--- NOTE | 2016-05-18 17:14 | NUR ---
Discharge Note PSYCHIATRIC Patient is not currently a tobacco user. Follow up Appointment made: Date and Time instructions and Social Work Discharge planning sheet sent to next level of care: yes [facility] contact Number for 24 hour support [phone] Discharge Packet Sent, and discusssed with patient and caregiver that includes Copies from the record of current medications with indications and frequencies, history and physical, Psychiatric Eval with reason and justification for admission, Lab values, Radiology results , follow up instructions for continuation of care, and Social Work discharge planning form: yes Discharge Packet Faxed to Provider/Next Level of Care: yes Discharge Packet Faxed with discharge Order and Discharge diagnosis sent to: Discharge Packet Discussed with: Discharge instruction sheet was included in the packet and sent with the patient upon discharge. Any Pending lab results can be obtained by calling [phone] Discharge Summary will be sent to next care provider when available. This includes the reason for admission, DC diagnosis, and next level of care recommendations.
--- NOTE | 2016-05-18 18:04 | NUR ---
Nurse spoke with patient's daughter to discuss diagnosis. She reports that she wants Dr. Molina to re-evaluate her diagnosis and add dementia and depression, Dr. Molina notified.
--- NOTE | 2016-05-19 02:31 | PN ---
DATE: 05/16/2016 PSYCHIATRIC PROGRESS NOTE This is a late entry for 05/16/2016, covers elements not covered in my initial note. SUBJECTIVE: Ultrasound of left upper extremity was negative. She is calm, medication compliant and cooperative with the assessment and cares. Denies suicidal ideation. REVIEW OF SYSTEMS: Ambulation impaired, in her wheelchair. No CV, , pulmonary, eye system symptoms on review. MENTAL STATUS EXAM: Reasonably oriented, pleasant, verbal, speech coherent, abstraction fair, computation impaired, mood and affect has improved. IMPRESSION: Unchanged from initial note. PLAN: Continue psychotropics mentioned in my initial note, despite slightly subtherapeutic valproic acid level she is tolerating Depakote ER 1250 at bedtime. We will repeat labs level. Adjust as clinically indicated. MAN Marcela GREGORY MD DR: LUBNA/bryant JOB#: [id number] / [id number]
--- NOTE | 2016-05-19 02:37 | PN ---
DATE: 05/17/2016 PSYCHIATRIC PROGRESS NOTE This is a late entry of 05/17/2016. Covers elements not covered in my initial note. SUBJECTIVE: Overall, the patient has been fairly cooperative on the unit. Temperature 97, BP 152/68, pulse 54, respirations 16. She is compliant with medication, cooperative with the assessment and cares. Denies suicidal ideation. REVIEW OF SYSTEMS: Ambulation impaired, in a wheelchair. No CV, , pulmonary, eye system symptoms on review. MENTAL STATUS EXAM: Reasonably oriented. Speech coherent, pleasant, verbal, smiling as I met with her. LABORATORY DATA: Reviewed. IMPRESSION: Bipolar 1 disorder, mixed versus depressed, in partial remission. Rest unchanged. PLAN: Continue Zoloft 200 mg a day, Abilify 5 mg a day, BuSpar 5 b.i.d., Depakote ER at bedtime. Repeat labs level to reach a therapeutic level. Depakote was previously increased since the prior level was low at 41. FAUSTO GREGORY MD DR: LUBNA/bryant JOB#: [id number] / [id number]
--- NOTE | 2016-05-20 11:44 | DS ---
DATE OF DISCHARGE: 05/18/2016 This is a late entry 05/18/2016, covers elements not covered in my initial note. REASON FOR ADMISSION: Please refer to the admission history for details. Briefly, the patient is an 80-year-old female referred back to us from [facility] by her primary care physician on account of crying hysterically, going through her things, taking things apart, talking about dying, looking for mother and father, and stating "I'm going to ." The patient has a history of bipolar 1 disorder, unspecified; anxiety disorder and additionally seems to have some confusion and memory deficits and according to the daughter, her past diagnosis of major neurocognitive disorder/dementia with depression and behavioral disturbance. I met with the patient daily individually from a psychiatric standpoint and she was followed medically per Dr. Dover/Dr. Elias. She did have some swelling of the left upper extremity. Ultrasound was negative. She is being treated on antibiotics for UTI prior to admission, which was continued. Adjustments were made in her psychotropics and she seemed to respond to a combination of Zoloft 200 mg a day, Abilify 5 mg a day, BuSpar 5 mg b.i.d., and Depakote ER 1250 mg at bedtime. Valproic acid level was 41 despite being subtherapeutic. It was adequate for her. REVIEW OF SYSTEMS: Ambulation impaired in a wheelchair. No CV, , pulmonary, or eye system symptoms on review. PHYSICAL EXAMINATION: VITAL SIGNS: Prior to discharge on 05/18/2016, temperature 97.5, BP 147/63, pulse 57, and respirations 17. MENTAL STATUS EXAM: Oriented to herself and situation. Speech coherent, abstraction fair, computation impaired, and language function intact. Mood and affect improved. No active psychotic symptoms, suicidal or homicidal ideation. LABORATORY DATA: Reviewed. FINAL DIAGNOSES: Bipolar 1 disorder mixed versus depressed with psychotic features in partial remission. Dementia, Alzheimer's, vascular with depression, delusions, behavioral disturbance, ____ partial remission; anxiety disorder, unspecified; and impulse control disorder, unspecified. Rest diagnosis unchanged from admission. DISCHARGE MEDICATIONS: Please refer to the [facility]AD. DISCHARGE INSTRUCTIONS: Outpatient psychiatric and medical followup at the assisted. Time for discharge day management greater than 30 minutes. MAN Marcela GREGORY MD DR: [place] JOB#: [id number] / [id number]
== END 2016-05-18 17:16 | DRG 884 ==
LOC: ER 19:31 → GEROPSY 20:45
PROVIDERS: ADMIT Psychiatry & Neurology Psychiatry; ATTEND Psychiatry & Neurology Psychiatry
DX: F01.51 Vascular dementia, unspecified severity, with behavioral disturbance (principal); N39.0 Urinary tract infection, site not specified; F02.81 Dementia in other diseases classified elsewhere, unspecified severity, with behavioral disturbance; F31.77 Bipolar disorder, in partial remission, most recent episode mixed; D69.6 Thrombocytopenia, unspecified; E03.9 Hypothyroidism, unspecified; E11.22 Type 2 diabetes mellitus with diabetic chronic kidney disease; E11.51 Type 2 diabetes mellitus with diabetic peripheral angiopathy without gangrene; F41.9 Anxiety disorder, unspecified; F63.9 Impulse disorder, unspecified; H40.9 Unspecified glaucoma; I12.9 Hypertensive chronic kidney disease with stage 1 through stage 4 chronic kidney disease, or unspecified chronic kidney disease; I48.91 Unspecified atrial fibrillation; J44.9 Chronic obstructive pulmonary disease, unspecified; K21.9 Gastro-esophageal reflux disease without esophagitis; N18.3 Chronic kidney disease, stage 3 (moderate); E61.1 Iron deficiency; D64.9 Anemia, unspecified; Z66 Do not resuscitate; F34.0 Cyclothymic disorder; E66.9 Obesity, unspecified; Z68.38 Body mass index [BMI] 38.0-38.9, adult; Z79.899 Other long term (current) drug therapy; Z87.891 Personal history of nicotine dependence; Z87.440 Personal history of urinary (tract) infections; G30.9 Alzheimer's disease, unspecified
CPT/HCPCS: 36415; 70450; 80047; 80048; 80053; 80061; 80164; 81001; 82306; 82533; 82607; 82947; 83036; 83540; 83550; 83735; 84436; 84443; 84480; 84484; 85027; 86592; 86593; 93005; 93971; 94640; J3420; J7620; 99285-25